=== PATIENT | female | born 1940 | race Caucasian/White ===

== ENCOUNTER → 2016-12-24 | Outpatient (CLI) | payer OTHER ==
[~2016-12-24] MED LIST: NS 100 ML IV 100 ML IV ONE
[2016-12-24 16:44] LABS: ALANINE AMINOTRANSFERASE 38 Units/L (12-78); ALBUMIN 3.9 g/dL (3.4-5.0); ALKALINE PHOSPHATASE 63 Units/L (46-116); AMYLASE 42 Units/L (25-115); ASPARTATE AMINO TRANSFERASE 32 Units/L (15-37); BLOOD UREA NITROGEN 16 mg/dL (7-18); CALCIUM 8.5 mg/dL (8.5-10.1); CARBON DIOXIDE 29.2 mmol/L (21-32); CHLORIDE 109 mmol/L (98-107); CREATININE 1.04 mg/dL (0.55-1.02); GLUCOSE 89 mg/dL (65-99); LIPASE 297 Units/L (73-393); SODIUM 146 mmol/L (136-145); TOTAL PROTEIN 6.6 g/dL (6.4-8.2); eGFR BLACK RACES > 60 (>60); eGFR NON BLACK RACES 55 (>60)
[2016-12-24 16:45] LABS: SERUM ACETONE NEGATIVE (NEGATIVE)
[2016-12-24 16:54] LABS: BASOPHILS # (AUTO) 0.1 X10^3/uL (0.0-0.1); BASOPHILS % (AUTO) 0.8 % (0.2-1.0); EOSINOPHILS # (AUTO) 0.2 x10^3/uL (0.0-0.2); EOSINOPHILS % (AUTO) 2.5 % (0.9-2.9); HEMATOCRIT 31.2 % (36.0-47.0); HEMOGLOBIN 9.8 g/dL (12.0-16.0); LYMPHOCYTES # (AUTO) 1.8 X10^3/uL (1.3-2.9); LYMPHOCYTES % (AUTO) 25.6 % (21.0-51.0); MEAN CORPUSCULAR HEMOGLOBIN 20.1 pg (27.0-34.0); MEAN CORPUSCULAR HGB CONC 31.6 g/dL (33.0-35.0); MEAN CORPUSCULAR VOLUME 63.5 fL (80.0-100.0); MEAN PLATELET VOLUME 9.8 fL (7.4-11.0); MONOCYTES # (AUTO) 0.5 x10^3/uL (0.3-0.8); MONOCYTES % (AUTO) 6.5 % (0.0-13.0); NEUTROPHILS # (AUTO) 4.5 x10^3/uL (2.2-4.8); NEUTROPHILS % (AUTO) 64.6 % (42.0-75.0); PLATELET COUNT 171 X10^3/uL (150.0-450.0); RED BLOOD COUNT 4.91 X10^6/uL (3.5-5.4); RED CELL DISTRIBUTION WIDTH 15.2 % (11.6-16.5)
[2016-12-24 17:26] LABS: ANISOCYTOSIS 1+; BURR CELLS PRESENT; HYPOCHROMASIA 2+; MICROCYTOSIS 2+; OVALOCYTES PRESENT; PLATELET MORPHOLOGY COMMENT NORMAL (NORMAL); TARGET CELLS PRESENT
--- NOTE | 2016-12-25 08:05 | CT ---
HISTORY: Abdominal pain Study: CT abdomen pelvis with contrast Comparison: None Technique: axial post-contrast images with coronal and sagittal reformats. Dose reduction procedures were used with MA/kv adjusted for body size. Findings: The liver, spleen, adrenal glands, and pancreas are within normal limits. The patient is status post cholecystectomy. The kidneys are unobstructed and without stones or solid masses. Bilateral renal c ysts are present. No ureteral calculi are identified. Calcific atherosclerotic change is present in a nondilated abdominal aorta. No intraperitoneal or retroperitoneal lymphadenopathy of significance is identified. The appendix is normal. There are no findings suggestive of diverticulitis or colitis . Examination of the pelvis demonstrated no evidence for pelvic masses, pelvic fluid, or pelvic lymp hadenopathy. No bladder abnormality is identified. No lytic or blastic skeletal lesions are identifi ed. IMPRESSION: No significant abnormality identified Reported By:
== END ==
LOC: LAB 16:04
PROVIDERS: ATTEND Nurse Practitioner Family
DX: R10.31 Right lower quadrant pain (principal)
CPT/HCPCS: 36415; 74177; 80053; 82009; 82150; 83690; 85025; A4222

== ENCOUNTER → 2017-03-13 | Outpatient (CLI) | payer OTHER ==
--- NOTE | 2017-03-14 16:08 | MG ---
HISTORY: SCREENING Comparison: January 19, 2015 and February 01, 2016 FINDINGS: Bilateral CC and MLO projections of the right and left breast were obtained. Scattered fibroglandul ar tissue is seen to be present without significant interval change. No suspicious architectural di stortion, mass or clustered microcalcifications can be observed to suggest malignancy. No skin thic kening or nipple retraction is appreciated. No pathological lymphadenopathy can be identified. Garrett ign-appearing calcifications are noted within the right and left breast. IMPRESSION: NO RADIOGRAPHIC EVIDENCE OF MALIGNANCY. ACR CATEGORY 2 - benign findings. FOLLOW-UP EXAM 1 YEAR. Diagnostic CAD was utilized and reviewed. * 0 (ZERO) - ASSESSMENT INCOMPLETE; ADDITIONAL IMAGING IS NEEDED. * 1/1 (ONE) - NEGATIVE. * 2/II (TWO) - BENIGN FINDINGS. * 3/III (THREE) - PROBABLY BENIGN FINDING; SHORT INTERVAL FOLLOW-UP SUGGESTED. * 4/IV (FOUR) - SUSPICIOUS ABNORMALITY; BIOPSY SHOULD BE CONSIDERED. * 5/V (FIVE) - HIGHLY SUSPICIOUS OF MALIGNANCY; BIOPSY SHOULD BE PERFORMED. A NEGATIVE X-RAY REPORT SHOULD NOT DELAY BIOPSY IF A DOMINANT OR CLINICALLY SUSPICIOUS MASS IS PRESENT; 4 TO 8 PERCENT OF CANCERS ARE NOT IDENTIFIED BY X-RAY. A NEG ATIVE REPORT MAY REINFORCE THE CLINICAL IMPRESSION. ADENOSIS AND DENSE BREASTS MAY OBSCURE AN UNDER LYING NEOPLASM. Reported By:
== END ==
LOC: RAD 10:31
PROVIDERS: ATTEND Nurse Practitioner Family
DX: Z12.31 Encounter for screening mammogram for malignant neoplasm of breast (principal)
CPT/HCPCS: 77067

== ENCOUNTER → 2017-09-13 | Outpatient (CLI) | payer OTHER ==
[2017-09-13 18:30] LABS: BASOPHILS # (AUTO) 0.1 X10^3/uL (0.0-0.1); EOSINOPHILS # (AUTO) 0.1 x10^3/uL (0.0-0.2); EOSINOPHILS % (AUTO) 1.1 % (0.9-2.9); HEMATOCRIT 31.5 % (36.0-47.0); LYMPHOCYTES # (AUTO) 3.2 X10^3/uL (1.3-2.9); LYMPHOCYTES % (AUTO) 35.4 % (21.0-51.0); MEAN CORPUSCULAR HEMOGLOBIN 20.4 pg (27.0-34.0); MEAN CORPUSCULAR HGB CONC 31.9 g/dL (33.0-35.0); MEAN CORPUSCULAR VOLUME 63.9 fL (80.0-100.0); MEAN PLATELET VOLUME 9.2 fL (7.4-11.0); MONOCYTES # (AUTO) 0.6 x10^3/uL (0.3-0.8); MONOCYTES % (AUTO) 6.7 % (0.0-13.0); NEUTROPHILS # (AUTO) 5.1 x10^3/uL (2.2-4.8); NEUTROPHILS % (AUTO) 55.8 % (42.0-75.0); PLATELET COUNT 223 X10^3/uL (150.0-450.0); RED BLOOD COUNT 4.93 X10^6/uL (3.5-5.4); RED CELL DISTRIBUTION WIDTH 15.2 % (11.6-16.5); WHITE BLOOD COUNT 9.1 X10^3/uL (3.6-10.0)
[2017-09-13 18:43] LABS: HEMOGLOBIN A1C 5.4 % (4.5-6.2)
[2017-09-13 18:45] LABS: HYPOCHROMASIA 2+; PLATELET MORPHOLOGY COMMENT NORMAL (NORMAL)
[2017-09-13 18:46] LABS: MICROCYTOSIS 2+
[2017-09-13 19:01] LABS: ALANINE AMINOTRANSFERASE 29 Units/L (12-78); ALBUMIN 3.7 g/dL (3.4-5.0); ALKALINE PHOSPHATASE 58 Units/L (46-116); AMYLASE 44 Units/L (25-115); ASPARTATE AMINO TRANSFERASE 19 Units/L (15-37); BLOOD UREA NITROGEN 15 mg/dL (7-18); CALCIUM 8.5 mg/dL (8.5-10.1); CARBON DIOXIDE 29.6 mmol/L (21-32); CHLORIDE 107 mmol/L (98-107); CREATININE 0.92 mg/dL (0.55-1.02); FREE T4 (FREE THYROXINE) 1.02 ng/dL (0.76-1.46); LIPASE 309 Units/L (73-393); SODIUM 143 mmol/L (136-145); TOTAL PROTEIN 6.5 g/dL (6.4-8.2); TSH (3RD GENERATION) 4.214 uIU/mL (0.358-3.74); eGFR BLACK RACES > 60 (>60); eGFR NON BLACK RACES > 60 (>60)
[2017-09-13 21:10] LABS: SERUM ACETONE NEGATIVE (NEGATIVE)
== END ==
LOC: LAB 18:03
PROVIDERS: ATTEND Nurse Practitioner Family
DX: R53.83 Other fatigue (principal); R19.7 Diarrhea, unspecified; E86.0 Dehydration; R50.9 Fever, unspecified; I10 Essential (primary) hypertension; R52 Pain, unspecified; R79.89 Other specified abnormal findings of blood chemistry
CPT/HCPCS: 36415; 80053; 82009; 82150; 83036; 83690; 84439; 84443; 84481; 85025

== ENCOUNTER 2017-09-25 22:23 | Emergency (ER) | payer OTHER ==
[2017-09-25 22:50] VITALS: BMI 24.0
--- NOTE | 2017-09-25 23:37 | DR.GENAD ---
HPI - PCP Primary Care Physician: JACQUES QUIJANO - Complaint/Symptoms Chief Complaint Doctors Comments: Patient has been followed ant treated by relative and a battery of tests have been run w/o definitive diagnosis of patients symptoms. She is followed by a electroencephalograph technologist for yearly visits due family history of heart disease. She admits to intermittent episodes of diarrhea , stool sample submitted but unable to use due collection technique, EKG done Sinus Rhythmn (today) Chemistries wnl,wbc essentially normal. Patient states that she has been taking an antibiotic for her tooth infection but has been taking a reduced dose. Patient denies fever, had nausea last week and intermittent diarrhea. Patient states that she had a syncopal episode two weeks ago. Chief Complaint:: "I'M JUST SICK. I HAVE BEEN DEALING WITH THIS INFECTED TOOTH FOR APPROX. 1 MONTH, AND HAVE BEEN TAKING ANTIBIOTICS FOR THE TOOTH. I AM SUPPOSE TO BE HAVING SOME KIND OF PROCEDURE IN [place] BY DR.MILES LUNDY. FOR ABOUT THE LAST 2 WEEKS, I HAVE BEEN HAVING SOME DIARRHEA OFF AND ON. I JUST GET SO WEAK WHEN I STAND , LIKE I HAVE NO STRENGTH. I ALSO FEEL DIZZY SOMETIMES." PATIENT SON STATES, "SHE PASSED OUT ABOUT 2 WEEKS AGO AND SHE FELL TODAY. MY IS JACQUES QUIJANO AND SHE ORDERED SOME TEST ON HER TODAY. GERMÁN CAME HERE AND HAD THEM DONE. JACQUES SAID SHE MAY JUST BE DEHYDRATED." Self Treatment fo Chief Complaint: ANTIBIOTICS - Source History Provided: Patient, Family Member - Mode of Arrival Mode of Arrival: Ambulatory - Timing Onset of Chief Complaint: 09/11/17 PMH - PMH Past Medical History: Yes Past Medical History: Hypertension Past Surgical History: Yes Surgical History: Cholecystectomy, Hysterectomy, Ortho Surgery Past Surgical History Comment: LEFT ANKLE SURGERY - Family History History of Family Medical Conditions: No - Social History Does patient currently use any type of tobacco product: No Have you used tobacco products in the last 12 months: No Type of Tobacco Use: None Does any household member use tobacco: No Alcohol Use: None Do you use any recreational Drugs:: No Lives With: Alone Lives Where: Home - infectious screening Have you traveled outside the country in the last 6 months?: No Isolation: Standard ROS - Review of Systems Eyes: No Symptoms Reported ENTM: No Symptoms Reported Respiratoy: No Symptoms Reported Cardiovascular: No Symptoms Reported Gastrointestinal/Abdominal: No Symptoms Reported Genitourinary: No Symptoms Reported Neurological: No Symptoms Reported Musculoskeletal: No Symptoms Reported Integumentary: No Symptoms Reported Hematologic/Lymphatic: No Symptoms Reported Endocrine: No Symptoms Reported Psychiatric: No Symptoms Reported All Other Systems: Reviewed and Negative PE - Vital Signs Vitals: Temperature 97.5 F Pulse Rate 87 Respiratory Rate 18 Blood Pressure 141/64 O2 Sat by Pulse Oximetry 98 - General Limitations: No Limitations General Appearance: Alert, In No Apparent Distress - Head Head Exam: Normal Inspection, Atraumatic - Eyes Eye exam: Normal Appearance, PERRL, EOMI - ENT ENT Exam: Normal Exam External Ear Exam: Normal External Inspection TM/Canal Exam: Bilateral Normal Nose Exam: Normal Nose Exam Mouth Exam: Normal Inspection Throat Exam: Normal Inspection - Neck Neck Exam: Normal Inspection, Full ROM - Chest Chest Inspection: Normal Inspection - Respiratory Respiratory Exam: Normal Lung Sounds Bilat Respiratory Exam: Bilateral Clear to Auscultation - Cardiovascular Cardiovascular Exam: Regular Rate, Normal Rhythm - Abdominal Exam Abdominal Exam: Normal Inspection, Normal Bowel Sounds Abdominal Tenderness: negative: RUQ, RLQ, LUQ, LLQ, Epigastrium, Suprapubic, Diffuse, Mild, Moderate, Severe, Other - Extremities Extremities Exam: Normal Inspection, Full ROM - Back Back Exam: Normal Inspection, Full ROM - Neurologic Neurological Exam: Alert, Oriented X3, CN II-XII Intact - Psychiatric Psychiatric Exam: Normal Affect, Normal Mood, Depressed - Skin Skin Exam: Warm, Dry, Intact Course - Reevaluation 1st: Unchanged ROR - XRAY XRAY Interpreted by: Radiologist (Ct sinuses w/o contrast: There is developmental underpneumatization of the frontal sinuses. There is suggestion of previous bilateral ethmoidectomy. Mild diffuse mucosal thickening of the bilateral maxillary sinuses is noted, without osseous change. No fluid level identified. Minimal frothy fluid is also noted within the nondependent portions of the sphenoid sinuses. The ostiomeatal complexes are growssly patent bilaterally; Impression: Mild bilateral maxillary and sphenoid sinusitis. CT Brain: There is generalized mild age appropriate brain atrophy with concomitant ventricular and sulcal enlargement. Periventricular white matter hypoattenuation is most suggestive for chronic microagniopathy. No acute bleed, mass effect or abnormal extra axial collection identified. No acute skeletal abnormality identified. The mastoid aire cells and middle ears are grossly clear , Sinus findings reported separeted. No acute intracranial abnormality. Age related changes.) - Diagnosis Discharge Problem: Maxillary sinusitis Qualifiers: Chronicity: acute Recurrence: not specified as recurrent Qualified Code(s): J01.00 - Acute maxillary sinusitis, unspecified Sphenoid sinusitis Qualifiers: Chronicity: unspecified Qualified Code(s): J32.3 - Chronic sphenoidal sinusitis - Discharge Plan Condition: Stable - Follow ups/Referrals Follow ups/Referrals: NFD,None [Primary Care Provider] - 3 days - Instructions
--- NOTE | 2017-09-26 00:21 | CT ---
CT head without contrast Indication: Weakness, syncope, sinus infection Comparison: None Technique: CT images of the head were obtained without contrast. Automatic exposure control was utili zed. There is generalized mild age-appropriate brain atrophy with concomitant ventricular and sulcal enlar gement. Periventricular white matter hypoattenuation is most suggestive for chronic microangiopathy. No acute bleed, mass effect, or abnormal extra-axial collection identified. No acute skeletal abnorma lity identified. The mastoid air cells and middle ears are grossly clear. Sinus findings reported sep arately. Impression: No acute intracranial abnormality. Age related changes as above. Reported By:
--- NOTE | 2017-09-26 00:24 | CT ---
CT sinuses without contrast Indication: Weakness, sinus infections Comparison: None Technique: CT images of the sinuses were obtained without contrast. Automatic exposure control was ut ilized. Findings: There is developmental underpneumatization of the frontal sinuses. There is suggestion of p revious bilateral ethmoidectomy. Mild diffuse mucosal thickening of the bilateral maxillary sinuses i s noted, without osseous change. No fluid level identified. Minimal frothy fluid is also noted within the nondependent portions of the sphenoid sinuses. The ostiomeatal complexes are grossly patent bila terally. Impression: Mild bilateral maxillary and sphenoid sinusitis. Reported By:
[2017-09-26 01:08] VITALS: BP 132/57
== END 2017-09-26 01:21 | disposition home or self-care (01) ==
LOC: ER 22:23
DX: J01.80 Other acute sinusitis (principal); J32.3 Chronic sphenoidal sinusitis; W19.XXXA Unspecified fall, initial encounter; Y92.9 Unspecified place or not applicable; R19.7 Diarrhea, unspecified; R53.83 Other fatigue; R05 Cough; R06.02 Shortness of breath; I10 Essential (primary) hypertension
CPT/HCPCS: 36415; 70450; 70486; 71046; 80053; 82270; 83630; 85025; 87045; 87328; 87329; 87336; 87427; 87493; 87899; 93005; 99282; 99283

== ENCOUNTER → 2017-09-25 | Outpatient (CLI) | payer OTHER ==
[2017-09-25 15:44] LABS: BASOPHILS % (AUTO) 0.5 % (0.2-1.0); EOSINOPHILS % (AUTO) 0.3 % (0.9-2.9); HEMATOCRIT 34.5 % (36.0-47.0); LYMPHOCYTES # (AUTO) 0.9 X10^3/uL (1.3-2.9); LYMPHOCYTES % (AUTO) 16.6 % (21.0-51.0); MEAN CORPUSCULAR HEMOGLOBIN 20.4 pg (27.0-34.0); MEAN CORPUSCULAR HGB CONC 31.9 g/dL (33.0-35.0); MEAN PLATELET VOLUME 9.6 fL (7.4-11.0); MONOCYTES # (AUTO) 0.3 x10^3/uL (0.3-0.8); NEUTROPHILS # (AUTO) 4.1 x10^3/uL (2.2-4.8); NEUTROPHILS % (AUTO) 76.6 % (42.0-75.0); PLATELET COUNT 154 X10^3/uL (150.0-450.0); RED CELL DISTRIBUTION WIDTH 15.7 % (11.6-16.5); WHITE BLOOD COUNT 5.4 X10^3/uL (3.6-10.0)
[2017-09-25 16:00] LABS: ALANINE AMINOTRANSFERASE 33 Units/L (12-78); ALBUMIN 3.9 g/dL (3.4-5.0); ALKALINE PHOSPHATASE 68 Units/L (46-116); ASPARTATE AMINO TRANSFERASE 24 Units/L (15-37); BLOOD UREA NITROGEN 16 mg/dL (7-18); CARBON DIOXIDE 25.6 mmol/L (21-32); CHLORIDE 104 mmol/L (98-107); CREATININE 1.06 mg/dL (0.55-1.02); SODIUM 139 mmol/L (136-145); TOTAL PROTEIN 7.1 g/dL (6.4-8.2); eGFR BLACK RACES > 60 (>60); eGFR NON BLACK RACES 53 (>60)
--- NOTE | 2017-09-25 16:22 | RAD ---
HISTORY: Shortness of breath Study: PA and lateral views of the chest. Comparison: None. Findings: The cardiomediastinal silhouette is normal. No focal consolidations, pleural effusions or pneumothora x. Bilateral hyper expansion and coarsening of interstitial markings. IMPRESSION: 1. No acute cardiopulmonary process. 2. Findings consistent with COPD. Reported By:
[2017-09-25 16:29] LABS: HYPOCHROMASIA 2+; MICROCYTOSIS 2+; PLATELET MORPHOLOGY COMMENT NORMAL (NORMAL)
[2017-09-25 20:08] LABS: STOOL FOR WBC NEGATIVE (NEGATIVE)
[2017-09-25 20:09] LABS: GIARDIA LAMBLIA ANTIGEN NEGATIVE (NEGATIVE)
[2017-09-25 20:10] LABS: CRYPTOSPORIDIUM PARVUM ANTIGEN NEGATIVE (NEGATIVE)
== END ==
LOC: LAB 15:08
PROVIDERS: ATTEND Nurse Practitioner Family
DX: R19.7 Diarrhea, unspecified (principal); R53.83 Other fatigue; R05 Cough; R06.02 Shortness of breath; I10 Essential (primary) hypertension
CPT/HCPCS: 36415; 71046; 80053; 82270; 83630; 85025; 87045; 87328; 87329; 87336; 87427; 87493; 87899; 93005; 93010

== ENCOUNTER → 2017-11-03 | Outpatient (CLI) | payer OTHER ==
--- NOTE | 2017-11-03 16:40 | RAD ---
Examination: Chest, PA and lateral views History: Bronchitis Comparison 09/25/2017 Findings: Continued normal heart size with clear lungs and pleural spaces. Metallic clothing artifact s are projected over the lower heart/mediastinum. There is no change in appearance of a compression f racture in the lower thoracic spine compared to prior study. Impression: No change; no acute findings. Reported By:
== END ==
LOC: RAD 16:00
DX: J20.9 Acute bronchitis, unspecified (principal); R06.2 Wheezing
CPT/HCPCS: 71046; 87070; 87205

== ENCOUNTER 2022-05-30 09:02 | Inpatient (IN) ==
[2022-05-30] MEDS ORDERED: ROCEPHIN 1 GRAM IV PREMIX 1 G/50 ML IV.SOLN. IV SCH (13:54)
[2022-05-30 14:14] LABS: ALANINE AMINOTRANSFERASE 20 Units/L (12-78); ALBUMIN 3.8 g/dL (3.4-5.0); ALKALINE PHOSPHATASE 56 Units/L (46-116); ASPARTATE AMINO TRANSFERASE 25 Units/L (15-37); BLOOD UREA NITROGEN 12 mg/dL (7-18); CALCIUM 8.2 mg/dL (8.5-10.1); CARBON DIOXIDE 30.7 mmol/L (21-32); CHLORIDE 106 mmol/L (98-107); CREATININE 0.71 mg/dL (0.55-1.02); SODIUM 142 mmol/L (136-145); TOTAL PROTEIN 6.2 g/dL (6.4-8.2); eGFR NON BLACK RACES > 60 (>60)
[2022-05-30 14:16] LABS: BASOPHILS # (AUTO) 0.1 X10^3/uL (0.0-0.1); EOSINOPHILS # (AUTO) 0.1 x10^3/uL (0.0-0.2); HEMATOCRIT 28.6 % (36.0-47.0); HEMOGLOBIN 9.1 g/dL (12.0-16.0); LYMPHOCYTES # (AUTO) 1.6 X10^3/uL (1.3-2.9); LYMPHOCYTES % (AUTO) 27.8 % (21.0-51.0); MEAN CORPUSCULAR HEMOGLOBIN 20.9 pg (27.0-34.0); MEAN CORPUSCULAR HGB CONC 31.9 g/dL (33.0-35.0); MEAN CORPUSCULAR VOLUME 65.5 fL (80.0-100.0); MEAN PLATELET VOLUME 9.3 fL (7.4-11.0); MONOCYTES # (AUTO) 0.5 x10^3/uL (0.3-0.8); MONOCYTES % (AUTO) 8.1 % (0.0-13.0); NEUTROPHILS # (AUTO) 3.7 x10^3/uL (2.2-4.8); NEUTROPHILS % (AUTO) 62.1 % (42.0-75.0); RED BLOOD COUNT 4.37 X10^6/uL (3.5-5.4); RED CELL DISTRIBUTION WIDTH 15.2 % (11.6-16.5); WHITE BLOOD COUNT 5.9 X10^3/uL (3.6-10.0)
[2022-05-30 14:16] LABS: BILIRUBIN,URINE NEGATIVE (NEGATIVE); BLOOD/HEMOGLOBIN,URINE NEGATIVE (NEGATIVE); GLUCOSE, URINE NEGATIVE (NEGATIVE); KETONES,URINE 2+ (NEGATIVE); LEUKOCYTE ESTERASE ,URINE NEGATIVE (NEGATIVE); NITRITES,URINE NEGATIVE (NEGATIVE); PROTEIN,URINE NEGATIVE (NEGATIVE); UROBILINOGEN,URINE NORMAL (NORMAL)
[2022-05-30 14:17] LABS: MICROCYTOSIS 1+; PLATELET MORPHOLOGY COMMENT NORMAL (NORMAL)
[2022-05-30 14:18] LABS: OVALOCYTES 1+; TARGET CELLS SLIGHT; TEAR DROP CELLS 1+
[2022-05-30 14:25] LABS: AMMONIA < 10 umol/L (11-32)
[2022-05-30 14:25] LABS: APPEARANCE,URINE CLEAR (CLEAR); COLOR,URINE YELLOW (YELLOW)
[2022-05-30 14:28] LABS: CREATINE KINASE 99 Units/L (26-192)
--- NOTE | 2022-05-30 14:39 | DR.PEXTPAI ---
HPI Time seen Time Seen by Provider: 05/30/22 14:39 COVID-19 Coronavirus risk:travel/contact w/high risk person: No Has patient experienced Coronavirus symptoms: No PMH Past Surgical History Past Surgical History: Yes Vaccines Pneumococcal Vaccine Every 5 Yrs: Yes PE Vital Signs Vitals: Blood Pressure [Left Arm] 152/62 Blood Pressure 151/69 ROR Labs Reviewed Result Diagrams: 05/30/22 09:50 05/30/22 09:50 Laboratory: WBC 5.9 X10^3/uL (3.6-10.0) 05/30/22 09:50 RBC 4.37 X10^6/uL (3.5-5.4) 05/30/22 09:50 Hgb 9.1 g/dL (12.0-16.0) L 05/30/22 09:50 Hct 28.6 % (36.0-47.0) L 05/30/22 09:50 MCV 65.5 fL (80.0-100.0) L 05/30/22 09:50 MCH 20.9 pg (27.0-34.0) L 05/30/22 09:50 MCHC 31.9 g/dL (33.0-35.0) L 05/30/22 09:50 RDW 15.2 % (11.6-16.5) 05/30/22 09:50 Plt Count 173 X10^3/uL (150.0-450.0) 05/30/22 09:50 Plt Count Comment Adequate (ADEQUATE) 05/30/22 09:50 MPV 9.3 fL (7.4-11.0) 05/30/22 09:50 Neut % (Auto) 62.1 % (42.0-75.0) 05/30/22 09:50 Lymph % (Auto) 27.8 % (21.0-51.0) 05/30/22 09:50 Mcmullen % (Auto) 8.1 % (0.0-13.0) 05/30/22 09:50 Eos % (Auto) 1.0 % (0.9-2.9) 05/30/22 09:50 Baso % (Auto) 1.0 % (0.2-1.0) 05/30/22 09:50 Neut # (Auto) 3.7 x10^3/uL (2.2-4.8) 05/30/22 09:50 Lymph # (Auto) 1.6 X10^3/uL (1.3-2.9) 05/30/22 09:50 Mcmullen # (Auto) 0.5 x10^3/uL (0.3-0.8) 05/30/22 09:50 Eos # (Auto) 0.1 x10^3/uL (0.0-0.2) 05/30/22 09:50 Baso # (Auto) 0.1 X10^3/uL (0.0-0.1) 05/30/22 09:50 Absolute Nucleated RBC 0.1 /100WBC 05/30/22 09:50 Plt Morphology Comment Normal (NORMAL) 05/30/22 09:50 RBC Morphology Abnormal (NORMAL) A 05/30/22 09:50 Microcytosis 1+ A 05/30/22 09:50 Target Cells Slight A 05/30/22 09:50 Tear Drop Cells 1+ A 05/30/22 09:50 Ovalocytes 1+ A 05/30/22 09:50 Acanthocytes (Spur) Slight 05/30/22 09:50 D-Dimer 1.74 ug/ml (0.0-0.57) H 05/30/22 09:50 Sodium 142 mmol/L (136-145) 05/30/22 09:50 Corrected Sodium TNP 05/30/22 09:50 Potassium 3.3 mmol/L (3.5-5.1) L 05/30/22 09:50 Chloride 106 mmol/L (98-107) 05/30/22 09:50 Carbon Dioxide 30.7 mmol/L (21-32) 05/30/22 09:50 BUN 12 mg/dL (7-18) 05/30/22 09:50 Creatinine 0.71 mg/dL (0.55-1.02) 05/30/22 09:50 Est GFR (MDRD) Af Amer > 60 (>60) 05/30/22 09:50 Est GFR (MDRD) Non-Af > 60 (>60) 05/30/22 09:50 Glucose 89 mg/dL (65-99) 05/30/22 09:50 Calcium 8.2 mg/dL (8.5-10.1) L 05/30/22 09:50 Corrected Calcium TNP 05/30/22 09:50 Magnesium 2.0 mg/dL (1.7-2.9) 05/30/22 09:50 Total Bilirubin 0.90 mg/dL (0.2-1.0) 05/30/22 09:50 AST 25 Units/L (15-37) 05/30/22 09:50 ALT 20 Units/L (12-78) 05/30/22 09:50 Alkaline Phosphatase 56 Units/L (46-116) 05/30/22 09:50 Ammonia < 10 umol/L (11-32) L 05/30/22 09:50 Creatine Kinase 99 Units/L (26-192) 05/30/22 09:50 Troponin I High Sens 9.0 ng/L (4.0-60.0) 05/30/22 09:50 B-Natriuretic Peptide 25.6 pg/mL (0-79) 05/30/22 09:50 Total Protein 6.2 g/dL (6.4-8.2) L 05/30/22 09:50 Albumin 3.8 g/dL (3.4-5.0) 05/30/22 09:50 Globulin 2.4 g/dL (2.5-4.5) L 05/30/22 09:50 Albumin/Globulin Ratio 1.6 Ratio (1.1-2.1) 05/30/22 09:50 Specimen Type Clean catch urine 05/30/22 12:24 Urine Color Yellow (YELLOW) 05/30/22 12:24 Urine Appearance Clear (CLEAR) 05/30/22 12:24 Urine pH 6.0 (5.0 - 8.0) 05/30/22 12:24 Ur Specific [place] 1.005 (1.000-1.030) 05/30/22 12:24 Urine Protein Negative (NEGATIVE) 05/30/22 12:24 Urine Glucose (UA) Negative (NEGATIVE) 05/30/22 12:24 Urine Ketones 2+ (NEGATIVE) 05/30/22 12:24 Urine Blood Negative (NEGATIVE) 05/30/22 12:24 Urine Nitrite Negative (NEGATIVE) 05/30/22 12:24 Urine Bilirubin Negative (NEGATIVE) 05/30/22 12:24 Urine Urobilinogen Normal (NORMAL) 05/30/22 12:24 Ur Leukocyte Esterase Negative (NEGATIVE) 05/30/22 12:24 SARS-CoV-2 (PCR) Negative (NEGATIVE) 05/30/22 14:08 Opioid Opioid Risk Tool Age (Sarwat box if 16-45): No History of Preadolescent Sexual Abuse: No Total: 0 Total Score Risk Category: Low Risk Copyright: Александр GOODRICH predicting aberrant behaviors Discharge Plan Diagnosis Discharge Problem: CVA (cerebral vascular accident), Altered mental state Discharge Plan Patient Disposition: ADMITTED INPATIENT Condition: Stable Orders to Discharge Patient Discharge Orders: Transfer (Routine); Ordered 05/30/22 Ordered By: VALERIA ESQUIVEL
[2022-05-30] MEDS ORDERED: ZOFRAN INJ 4 MG VIAL IVP ONE ×2 (15:55→15:59)
[2022-05-30] MEDS: ROCEPHIN VIAL 1 GRAM 1 G in NS 100 ML IV 100 ML IV SCH (15:59)
[2022-05-30] MEDS ORDERED: ZOFRAN INJ 4 MG VIAL ONE (15:59)
[2022-05-30 16:51] VITALS: BMI 24.0
[2022-05-30] MEDS ORDERED: POTASSIUM CHL 40 MEQ/NS 0.45% 500 ML IV PRN (17:03)
[2022-05-30] MEDS ORDERED: POTASSIUM CHLORIDE LIQ 20 MEQ UDC PO PRN (17:03)
[2022-05-30] MEDS ORDERED: MICRO K EXTEN CAP 10 MEQ PO PRN (17:03)
[2022-05-30] MEDS ORDERED: K-RIDER 10 MEQ/NS 100 ML 10 MEQ/100 ML BAG IV PRN (17:03)
[2022-05-30] MEDS ORDERED: POTASSIUM CHL 60 MEQ/NS 0.45% 500 ML IV PRN (17:03)
[2022-05-30] MEDS ORDERED: KLOR-CON PO PRN (17:03)
[2022-05-30] MEDS: K-DUR TAB 20 MEQ PO PRN (17:34)
--- NOTE | 2022-05-30 17:59 | RAD ---
HISTORYAMS HTN, GB, HYSTERECTOMY, ORTHOSTUDYCHEST, 1 [id number] diastinal silhouette within normal limits. No focal consolidation, pulmonary edema, sizeable pleural effusion, or visible pneumothorax. No acute osseous finding.IMPRESSIONNo acute appearing finding.Electronically signed by: Partha Keene (May 30, 2022 17:57:45)
[2022-05-30 19:18] LABS: INR 1.12 (0.8-1.3)
[2022-05-30] MEDS: COREG TAB 6.25 MG PO SCH (20:45)
[2022-05-30] MEDS: LIPITOR TAB 10 MG PO SCH (20:45)
[2022-05-30] MEDS: NORVASC TAB 5 MG PO SCH (20:45)
[2022-05-31 06:21] LABS: BASOPHILS % (AUTO) 0.7 % (0.2-1.0); EOSINOPHILS # (AUTO) 0.1 x10^3/uL (0.0-0.2); EOSINOPHILS % (AUTO) 1.2 % (0.9-2.9); HEMOGLOBIN 9.6 g/dL (12.0-16.0); LYMPHOCYTES # (AUTO) 1.4 X10^3/uL (1.3-2.9); LYMPHOCYTES % (AUTO) 23.6 % (21.0-51.0); MEAN CORPUSCULAR HEMOGLOBIN 20.8 pg (27.0-34.0); MEAN CORPUSCULAR HGB CONC 32.2 g/dL (33.0-35.0); MEAN CORPUSCULAR VOLUME 64.7 fL (80.0-100.0); MEAN PLATELET VOLUME 9.7 fL (7.4-11.0); MONOCYTES # (AUTO) 0.4 x10^3/uL (0.3-0.8); MONOCYTES % (AUTO) 7.5 % (0.0-13.0); NEUTROPHILS # (AUTO) 3.9 x10^3/uL (2.2-4.8); RED BLOOD COUNT 4.63 X10^6/uL (3.5-5.4); RED CELL DISTRIBUTION WIDTH 15.3 % (11.6-16.5); WHITE BLOOD COUNT 5.9 X10^3/uL (3.6-10.0)
[2022-05-31 06:43] LABS: ALANINE AMINOTRANSFERASE 22 Units/L (12-78); ALBUMIN 3.5 g/dL (3.4-5.0); ALKALINE PHOSPHATASE 55 Units/L (46-116); ASPARTATE AMINO TRANSFERASE 28 Units/L (15-37); BLOOD UREA NITROGEN 16 mg/dL (7-18); CALCIUM 8.3 mg/dL (8.5-10.1); CARBON DIOXIDE 27.4 mmol/L (21-32); CHLORIDE 108 mmol/L (98-107); CHOL/HDL RATIO 2.3 (0.0-5.0); CHOLESTEROL 112 mg/dL (0-200); HDL CHOLESTEROL 48 mg/dL (40-60); SODIUM 143 mmol/L (136-145); TOTAL PROTEIN 6.2 g/dL (6.4-8.2); TRIGLYCERIDES 67 mg/dL (0-150); eGFR NON BLACK RACES > 60 (>60)
[2022-05-31 07:07] LABS: MICROCYTOSIS 2+; OVALOCYTES PRESENT; PLATELET MORPHOLOGY COMMENT NORMAL (NORMAL); STOMATOCYTES PRESENT; TARGET CELLS PRESENT; TEAR DROP CELLS PRESENT
[2022-05-31] MEDS ORDERED: ROCEPHIN 1 GRAM IV PREMIX 1 G/50 ML IV.SOLN. IV SCH (09:00)
[2022-05-31] MEDS: NORVASC TAB 5 MG PO SCH ×2 (09:02→20:12)
[2022-05-31] MEDS: ROCEPHIN VIAL 1 GRAM 1 G in NS 100 ML IV 100 ML IV SCH (09:03)
[2022-05-31] MEDS: COREG TAB 6.25 MG PO SCH ×2 (09:03→20:12)
--- NOTE | 2022-05-31 10:06 | VAS ---
HISTORYCVA. Evaluate carotid stenosis.STUDYCAROTID USCOMPARISONNoneTECHNIQUEForty images made by the fruit trimmer. Rogel scale and color flow Doppler images of the right carotid arterial system, left carotid arterial system, and vertebral arterial system were obtained.FINDINGSVelocities are measured in centimeters per second. Recommendations are based on peer reviewed published data from Society of Radiologists in Ultrasound Consensus Conference, 2003.Right side: Right common carotid and internal carotid arteries are widely patent. Hard plaque is present in the carotid bulb. Seen is focal wall thickening. There is echogenicity with shadowing consistent with calcification.Peak systolic velocity in the right common carotid artery measured A1. Peak systolic velocity in the right internal carotid artery measured 73. This yields a peak systolic velocity ratio of 0.9. The peak end diastolic velocity measured 20. This estimates a stenosis of less than 50 percent.Right external carotid artery was patent. Flow in the right vertebral artery was antegrade.Left side: Left common carotid and internal carotid arteries are widely patent. Focal hard plaque is noted along the distal wall of the bulb. There is shadowing consistent with calcification.Peak systolic velocity in the left common carotid artery measured [92]. Peak systolic velocity in the left internal carotid artery measured [102]. This yields a peak systolic velocity ratio of [1.1]. The peak end diastolic velocity measured [19]. [This estimates a stenosis of less than 50 percent]Left external carotid artery was patent. Flow in the left vertebral artery was antegrade.IMPRESSION1. Bilateral carotid bulb plaque disease2. Less than 50% right ICA and left ICA stenosisElectronically signed by: Mateusz Pham (May 31, 2022 10:05:21)
--- NOTE | 2022-05-31 11:00 | RAD ---
HISTORYELEVATED BNPSTUDYCHEST, 1 [id number]/08/2022FINDINGSThe lungs are clear. No pneumothorax or significant effusion. No pulmonary edema. Probable superimposed shadows lower right chest.Heart size is normal. Vascular calcifications are present compatible with atherosclerosis.Bones are unremarkable. []IMPRESSION1. No significant abnormalityElectronically signed by: Mateusz Pham (May 31, 2022 10:58:53)
--- NOTE | 2022-05-31 13:03 | DR.H&P ---
H&P - History & Physical for Day of: H&P Date: 05/30/22 - Chief Complaint Chief Complaint: FALL, UTI - History of Present Illness History of Present Illness: PT IS 81 WF, RECENTLY DX WITH UTI AND POSSIBLE SUBACUTE CVA. PT WAS SEEN EARLIER IN THE WEEK AND TREATED FOR UTI. PTS CT RECOMMENDED FU MRI. PT WAS FOUND BY CHEMISTRY RESEARCH ASSISTANT ON FRIDAY MORNING AROUND 3 AM, LAYING IN CLOSET FLOOR. CHEMISTRY RESEARCH ASSISTANT REPORTS PT WAS UNSURE HOW SHE "GOT THERE" BUT WAS ALERT AND WITHOUT SPEECH IMPAIRMENT OR UNILATERAL WEAKNESS. PT ADMITTED FOR TREATMENT AND EVALUATION OF ACUTE ILLNESS. - Past Medical History Past Medical History: Hypertension, Dyslipidemia, Arthritis - Past Surgical History Surgical History: Cholecystectomy, Hysterectomy - Family History Family Medical History: [place] - Social History Does patient currently use any type of tobacco product: No Have you used tobacco products in the last 12 months: No Alcohol Use: None Drug Use: None - Medications Home Medications: No Known Drug Allergies Allergy (Verified 10/03/20 19:23) CONTINUE taking the following medications meclizine 25 mg tablet 25 mg PO TID PRN 05/30/22 [History] ondansetron HCl 4 mg tablet 4 mg PO Q8H PRN 05/30/22 [History] - Review of Systems Constitutional: Weakness Eyes: No Symptoms Reported ENT: No Symptoms Reported Respiratory: No Symptoms Reported Cardiovascular: No Symptoms Reported Gastrointestinal: No Symptoms Reported Genitourinary: No Symptoms Reported Musculoskeletal: No Symptoms Reported Skin: No Symptoms Reported Neurological: Weakness - Physical Exam Vital Signs: Temperature 98.6 F Pulse Rate [Left Radial] 74 Respiratory Rate 22 Blood Pressure [Left Arm] 141/64 Blood Pressure 151/69 O2 Sat by Pulse Oximetry 93 Oriented: Normal Eyes: Normal Ear: Normal Nose: Normal Throat: Normal Respiratory: RLL Diminished, LLL Diminished Cardiovascular: Normal : Normal Auscultation: Bowel Sounds: Normal Palpation: Normal Tenderness: Normal Skin: Decreased Turgur Musculoskeletal: Motor Deficit Psychiatric: Normal Mood Description: Calm Speech Pattern: Clear, Appropriate - Assessment/Plan (1) CVA (cerebral vascular accident) Status: Acute Plan: ADMIT, CARDIAC MONITORING, MRI BRAIN. BP CONTROL, I&OS, CXR ON ADMISSION. TELEMERY. PT/OT EVALUATION, FLP, OBTAIN RECENT URINE CULTURE REPORT. BC ON ADMISSION, IV ROCEPHIN (2) UTI (urinary tract infection) Status: Acute (3) Hypertension Status: Acute (4) Hyperlipidemia Status: Acute (5) Weakness Status: Acute - Allergies Allergies/Adverse Reactions: Allergies Allergy/AdvReac Type Severity Reaction Status Date / Time No Known Drug Allergies Allergy Verified 10/03/20 19:23
--- NOTE | 2022-05-31 13:26 | MRI ---
HISTORYCONFUSION. CVA.STUDYBRAIN W/O CONCOMPARISONNone.TECHNIQUEMultiplanar multi-sequence MRI of the brain was obtained utilizing standard departmental protocol. Sagittal and axial T1 weighted images were obtained. Axial T2 and flair weighted images were performed as well. Axial diffusion weighted and ADC trace mapping was performed.FINDINGSMild motion artifact on the sagittal T1 sequence. Diffusion imaging: [Normal, no acute infarct.]Susceptibility weighted imaging: [No abnormal susceptibility artifact.]Brain volume: [Appropriate for age.]Ventricles and basal cisterns: FLAIR bright signal in the basilar cisterns and 4th ventricle is nonspecific but often due to technical artifact. No abnormal signal in these locations on other pulse sequences. No hydrocephalus.Extra-axial spaces: [No extra-axial collection.]Cerebral parynchema: [No mass, hematoma, or mass effect.] Moderate amount of T2 and Flair hyperintensities in the supratentorial brain mainly in the deep white matter.Pituitary and other sagittal midline structures: [Normal.]Visualized orbits: [Bilateral lens surgery.]Paranasal sinuses and mastoid air cells: [Clear.]Bones: [Intact.]Other: [None.]IMPRESSION[No abnormal restricted diffusion to suggest acute infarct. Moderate chronic small vessel disease.]Electronically signed by: Rudy Gonzales (May 31, 2022 13:24:06)
[2022-05-31] MEDS: LIPITOR TAB 10 MG PO SCH (20:12)
[2022-06-01 06:58] LABS: BASOPHILS % (AUTO) 0.6 % (0.2-1.0); EOSINOPHILS # (AUTO) 0.1 x10^3/uL (0.0-0.2); EOSINOPHILS % (AUTO) 1.9 % (0.9-2.9); HEMATOCRIT 26.8 % (36.0-47.0); HEMOGLOBIN 8.7 g/dL (12.0-16.0); LYMPHOCYTES # (AUTO) 1.5 X10^3/uL (1.3-2.9); LYMPHOCYTES % (AUTO) 28.8 % (21.0-51.0); MEAN CORPUSCULAR HEMOGLOBIN 21.3 pg (27.0-34.0); MEAN CORPUSCULAR HGB CONC 32.6 g/dL (33.0-35.0); MEAN CORPUSCULAR VOLUME 65.2 fL (80.0-100.0); MEAN PLATELET VOLUME 9.9 fL (7.4-11.0); MONOCYTES # (AUTO) 0.5 x10^3/uL (0.3-0.8); MONOCYTES % (AUTO) 9.1 % (0.0-13.0); NEUTROPHILS # (AUTO) 3.2 x10^3/uL (2.2-4.8); NEUTROPHILS % (AUTO) 59.6 % (42.0-75.0); RED CELL DISTRIBUTION WIDTH 15.1 % (11.6-16.5); WHITE BLOOD COUNT 5.3 X10^3/uL (3.6-10.0)
[2022-06-01 07:18] LABS: ALANINE AMINOTRANSFERASE 21 Units/L (12-78); ALBUMIN 3.2 g/dL (3.4-5.0); ALKALINE PHOSPHATASE 47 Units/L (46-116); ASPARTATE AMINO TRANSFERASE 21 Units/L (15-37); BLOOD UREA NITROGEN 15 mg/dL (7-18); CARBON DIOXIDE 29.8 mmol/L (21-32); CHLORIDE 107 mmol/L (98-107); COR CA(FOR HYPOALB) 8.6 mg/dL (8.5-10.1); CREATININE 0.73 mg/dL (0.55-1.02); SODIUM 143 mmol/L (136-145); TOTAL PROTEIN 5.7 g/dL (6.4-8.2); eGFR NON BLACK RACES > 60 (>60)
[2022-06-01 07:46] LABS: MICROCYTOSIS 1+; PLATELET MORPHOLOGY COMMENT NORMAL (NORMAL)
[2022-06-01 07:48] LABS: OVALOCYTES PRESENT; STOMATOCYTES PRESENT
[2022-06-01 07:50] LABS: TEAR DROP CELLS PRESENT
[2022-06-01 08:00] LABS: TARGET CELLS PRESENT
[2022-06-01] MEDS: COREG TAB 6.25 MG PO SCH ×2 (08:54→21:59)
[2022-06-01] MEDS: NORVASC TAB 5 MG PO SCH ×2 (08:54→22:00)
[2022-06-01] MEDS: ROCEPHIN VIAL 1 GRAM 1 G in NS 100 ML IV 100 ML IV SCH (08:54)
--- NOTE | 2022-06-01 13:52 | CT ---
HISTORYWeakness and slurred speechSTUDYCT brain without contrastCOMPARISONJanuary 2020TECHNIQUEMultiple axial images of the brain were obtained from the skull base to the vertex [without] administration of IV contrast.Dose reduction techniques including Automated Exposure Control (AEC) and adjustment of mA and kV were utlized.FINDINGS[No acute intraparenchymal hemorrhage or mass can be identified.] [No extra-axial fluid collections are seen.] [No alteration in the attenuation of the brain parenchyma can be identified to suggest acute or subacute ischemic change.] Small vessel ischemic changes and chronic appearing lacunar infarct in the right basal ganglia. Age-appropriate atrophic changes are also seen. [The ventricular system is symmetric and nondilated.] [The extracranial structures are grossly unremarkable.]IMPRESSION[No acute intracranial process can be identified.]Electronically signed by: PANCHO TRUONG (Jun 01, 2022 13:50:03)
[2022-06-01] MEDS: ASPIRIN 81 MG CHEWTAB PO SCH (16:01)
[2022-06-01] MEDS: PLAVIX PO SCH (16:02)
[2022-06-01] MEDS: K-DUR TAB 20 MEQ PO PRN (16:20)
[2022-06-01] MEDS: LIPITOR TAB 10 MG PO SCH (21:59)
[2022-06-02 06:32] LABS: BASOPHILS # (AUTO) 0.1 X10^3/uL (0.0-0.1); BASOPHILS % (AUTO) 1.1 % (0.2-1.0); EOSINOPHILS # (AUTO) 0.1 x10^3/uL (0.0-0.2); EOSINOPHILS % (AUTO) 1.5 % (0.9-2.9); HEMATOCRIT 26.4 % (36.0-47.0); HEMOGLOBIN 8.6 g/dL (12.0-16.0); LYMPHOCYTES # (AUTO) 1.8 X10^3/uL (1.3-2.9); LYMPHOCYTES % (AUTO) 33.4 % (21.0-51.0); MEAN CORPUSCULAR HGB CONC 32.5 g/dL (33.0-35.0); MEAN CORPUSCULAR VOLUME 64.6 fL (80.0-100.0); MEAN PLATELET VOLUME 9.5 fL (7.4-11.0); MONOCYTES # (AUTO) 0.4 x10^3/uL (0.3-0.8); MONOCYTES % (AUTO) 7.8 % (0.0-13.0); NEUTROPHILS % (AUTO) 56.2 % (42.0-75.0); RED BLOOD COUNT 4.09 X10^6/uL (3.5-5.4); RED CELL DISTRIBUTION WIDTH 15.3 % (11.6-16.5); WHITE BLOOD COUNT 5.3 X10^3/uL (3.6-10.0)
[2022-06-02 06:58] LABS: ALANINE AMINOTRANSFERASE 20 Units/L (12-78); ALBUMIN 3.2 g/dL (3.4-5.0); ALKALINE PHOSPHATASE 48 Units/L (46-116); ASPARTATE AMINO TRANSFERASE 18 Units/L (15-37); BLOOD UREA NITROGEN 11 mg/dL (7-18); CALCIUM 8.2 mg/dL (8.5-10.1); CARBON DIOXIDE 27.4 mmol/L (21-32); CHLORIDE 106 mmol/L (98-107); COR CA(FOR HYPOALB) 8.8 mg/dL (8.5-10.1); CREATININE 0.65 mg/dL (0.55-1.02); SODIUM 142 mmol/L (136-145); TOTAL PROTEIN 5.6 g/dL (6.4-8.2); eGFR NON BLACK RACES > 60 (>60)
[2022-06-02 07:08] LABS: PLATELET MORPHOLOGY COMMENT NORMAL (NORMAL)
[2022-06-02 07:09] LABS: MICROCYTOSIS 2+
[2022-06-02 07:10] LABS: OVALOCYTES PRESENT; STOMATOCYTES PRESENT; TARGET CELLS PRESENT; TEAR DROP CELLS PRESENT
[2022-06-02] MEDS: PLAVIX PO SCH (08:29)
[2022-06-02] MEDS: ROCEPHIN VIAL 1 GRAM 1 G in NS 100 ML IV 100 ML IV SCH (08:29)
[2022-06-02] MEDS: COREG TAB 6.25 MG PO SCH ×2 (08:29→20:06)
[2022-06-02] MEDS: ASPIRIN 81 MG CHEWTAB PO SCH (08:29)
[2022-06-02] MEDS: NORVASC TAB 5 MG PO SCH ×2 (08:29→20:06)
--- NOTE | 2022-06-02 15:57 | VAS ---
HISTORYReason For StudySTUDYLOWER EXT VENOUS, BILATERALCOMPARISONNoneTECHNIQUEMultiple renee scale and color flow Doppler images of the deep venous system were obtained of the right and left lower extremity.FINDINGSThe deep venous system of the right and left lower extremities were evaluated from the level of the common femoral vein through the popliteal vein. Normal color flow and augmentation can be observed. In addition, normal compression is seen throughout the deep venous system.IMPRESSIONNegative for DVT.Electronically signed by: PANCHO TRUONG (Jun 02, 2022 15:56:12)
[2022-06-02] MEDS ORDERED: NS 100 ML IV 100 ML ONE (16:52)
--- NOTE | 2022-06-02 18:28 | CT ---
EXAM: CTA CHEST WITH INTRAVENOUS CONTRASTHISTORY: Elevated D-dimer (increases yesterday). PE suspected.TECHNIQUE: Spiral axial CT images are obtained through the chest with the administration of intravenous contrast. Coronal, sagittal and 3D MIP images are reformatted.DOSIMETRY: Total DLP 437.1 mGycm; CTDI 32.2 mGyCOMPARISON: None available.FINDINGS:CARDIOVASCULAR: There are intravascular filling defects/PEs seen within segmental/subsegmental pulmonary arteries of the right and left upper lobes, right middle lobe, and right and left lower lobes; overall small to low moderate clot burden; no evidence for gross central pulmonary embolic lesion or pulmonary embolism seen. That heart size and mediastinal vascular structures are within normal limits. There is evidence for coronary and aortic atherosclerosis. No aortic aneurysm or dissection is seen. The heart size is within normal limits. No pericardial effusion is seen.MEDIASTINUM AND VIVIEN: There is a small hiatal hernia. No mass lesion, lymphadenopathy, emphysema, or abnormal fluid collection is seen.LUNGS: There is no acute parenchymal infiltrate, lung nodule, or endobronchial obstructing lesion seen. No pleural effusion or pneumothorax is evident.CHEST WALL: There are no chest wall lesions seen. The visualized bony structures are within normal limits. No axillary lymphadenopathy is noted.UPPER ABDOMEN: Limited views through the upper abdomen demonstrate no gross acute abnormality. There is a partially imaged multilocular cystic lesion with peripheral calcifications or calcified septations projecting from the anterior aspect of the left kidney and measuring at least 5.4 cm x 4.9 cm (Bosniak 2F). Consider follow-up dedicated renal imaging for further assessment as clinically warranted.IMPRESSION:1. PEs seen within segmental/subsegmental pulmonary arteries of the right and left upper lobes, right middle lobe, and right and left lower lobes; overall small to low moderate clot burden; no evidence for gross central pulmonary embolic lesion or pulmonary embolism seen.2. Coronary and aortic atherosclerosis; no aortic aneurysm or dissection seen.3. No evidence for pulmonary infarction, acute parenchymal infiltrate, pleural effusion, or pneumothorax seen.Electronically signed by: Calvin Stockton (Jun 02, 2022 18:26:00)
[2022-06-02 18:47] LABS: ABG BASE EXCESS 6.2 mmol/L (-2.0-2.0); ABG HCO3 29.5 mmol/L (22-26)
[2022-06-02] MEDS: COLACE CAP 100 MG PO SCH (20:05)
[2022-06-02] MEDS: LIPITOR TAB 10 MG PO SCH (20:06)
[2022-06-02 20:11] LABS: INR 1.14 (0.8-1.3)
[2022-06-02] MEDS ORDERED: HEPARIN SODIUM INJ 5000 UNITS IVP ONE (21:28)
[2022-06-02] MEDS ORDERED: HEPARIN SODIUM INJ 5000 UNITS ONE (21:32)
[2022-06-02] MEDS: HEPARIN SODIUM IN D5W 25,000 UNITS/500 ML BAG IV PRN (22:05)
[2022-06-03 04:26] LABS: BASOPHILS % (AUTO) 0.8 % (0.2-1.0); EOSINOPHILS # (AUTO) 0.2 x10^3/uL (0.0-0.2); EOSINOPHILS % (AUTO) 2.5 % (0.9-2.9); HEMATOCRIT 26.9 % (36.0-47.0); HEMOGLOBIN 8.8 g/dL (12.0-16.0); LYMPHOCYTES % (AUTO) 31.9 % (21.0-51.0); MEAN CORPUSCULAR HEMOGLOBIN 21.1 pg (27.0-34.0); MEAN CORPUSCULAR HGB CONC 32.7 g/dL (33.0-35.0); MEAN CORPUSCULAR VOLUME 64.5 fL (80.0-100.0); MEAN PLATELET VOLUME 9.3 fL (7.4-11.0); MONOCYTES # (AUTO) 0.5 x10^3/uL (0.3-0.8); MONOCYTES % (AUTO) 7.5 % (0.0-13.0); NEUTROPHILS # (AUTO) 3.5 x10^3/uL (2.2-4.8); NEUTROPHILS % (AUTO) 57.3 % (42.0-75.0); RED BLOOD COUNT 4.17 X10^6/uL (3.5-5.4); WHITE BLOOD COUNT 6.1 X10^3/uL (3.6-10.0)
[2022-06-03 04:35] LABS: ALANINE AMINOTRANSFERASE 18 Units/L (12-78); ALBUMIN 3.4 g/dL (3.4-5.0); ALKALINE PHOSPHATASE 52 Units/L (46-116); ASPARTATE AMINO TRANSFERASE 16 Units/L (15-37); BLOOD UREA NITROGEN 11 mg/dL (7-18); CALCIUM 8.1 mg/dL (8.5-10.1); CARBON DIOXIDE 27.9 mmol/L (21-32); CHLORIDE 105 mmol/L (98-107); CREATININE 0.71 mg/dL (0.55-1.02); SODIUM 141 mmol/L (136-145); TOTAL PROTEIN 5.9 g/dL (6.4-8.2); eGFR NON BLACK RACES > 60 (>60)
[2022-06-03 04:41] LABS: PLATELET MORPHOLOGY COMMENT NORMAL (NORMAL)
[2022-06-03 04:44] LABS: HYPOCHROMASIA 1+; MICROCYTOSIS 2+; OVALOCYTES PRESENT; STOMATOCYTES PRESENT; TARGET CELLS PRESENT; TEAR DROP CELLS PRESENT
[2022-06-03] MEDS: ASPIRIN 81 MG CHEWTAB PO SCH (08:21)
[2022-06-03] MEDS: COREG TAB 6.25 MG PO SCH ×2 (08:22→21:52)
[2022-06-03] MEDS: NORVASC TAB 5 MG PO SCH ×2 (08:23→21:52)
[2022-06-03] MEDS ORDERED: NS 250 ML IV 250 ML IV ONE (08:36)
[2022-06-03] MEDS: ROCEPHIN VIAL 1 GRAM 1 G in NS 100 ML IV 100 ML IV SCH (09:30)
[2022-06-03] MEDS ORDERED: HEPARIN SODIUM INJ 5000 UNITS IVP STA (11:04)
[2022-06-03] MEDS: COLACE CAP 100 MG PO SCH (21:52)
[2022-06-03] MEDS: LIPITOR TAB 10 MG PO SCH (21:52)
[2022-06-04] MEDS: HEPARIN SODIUM IN D5W 25,000 UNITS/500 ML BAG IV PRN (03:53)
[2022-06-04] MEDS ORDERED: DULCOLAX SUPPOSITORY 10 MG RECTAL ONE (08:12)
[2022-06-04 08:20] LABS: ALANINE AMINOTRANSFERASE 20 Units/L (12-78); ALBUMIN 3.7 g/dL (3.4-5.0); ALKALINE PHOSPHATASE 54 Units/L (46-116); ASPARTATE AMINO TRANSFERASE 17 Units/L (15-37); BLOOD UREA NITROGEN 10 mg/dL (7-18); CALCIUM 8.7 mg/dL (8.5-10.1); CARBON DIOXIDE 28.9 mmol/L (21-32); CHLORIDE 103 mmol/L (98-107); CREATININE 0.76 mg/dL (0.55-1.02); SODIUM 139 mmol/L (136-145); TOTAL PROTEIN 6.5 g/dL (6.4-8.2); eGFR NON BLACK RACES > 60 (>60)
[2022-06-04 08:23] LABS: BASOPHILS % (AUTO) 0 % (0.2-1.0); EOSINOPHILS # (AUTO) 0.9 x10^3/uL (0.0-0.2); EOSINOPHILS % (AUTO) 12.4 % (0.9-2.9); HEMATOCRIT 30.5 % (36.0-47.0); HEMOGLOBIN 9.8 g/dL (12.0-16.0); LYMPHOCYTES # (AUTO) 0.3 X10^3/uL (1.3-2.9); LYMPHOCYTES % (AUTO) 4.3 % (21.0-51.0); MEAN CORPUSCULAR HEMOGLOBIN 20.9 pg (27.0-34.0); MEAN CORPUSCULAR HGB CONC 32.3 g/dL (33.0-35.0); MEAN CORPUSCULAR VOLUME 64.7 fL (80.0-100.0); MEAN PLATELET VOLUME 9.9 fL (7.4-11.0); MONOCYTES # (AUTO) 0.3 x10^3/uL (0.3-0.8); MONOCYTES % (AUTO) 4.1 % (0.0-13.0); NEUTROPHILS # (AUTO) 5.7 x10^3/uL (2.2-4.8); NEUTROPHILS % (AUTO) 79.2 % (42.0-75.0); RED BLOOD COUNT 4.71 X10^6/uL (3.5-5.4); RED CELL DISTRIBUTION WIDTH 15.1 % (11.6-16.5); WHITE BLOOD COUNT 7.2 X10^3/uL (3.6-10.0)
[2022-06-04 08:39] LABS: HYPOCHROMASIA 1+; MICROCYTOSIS 2+; OVALOCYTES PRESENT; PLATELET MORPHOLOGY COMMENT NORMAL (NORMAL); STOMATOCYTES PRESENT; TARGET CELLS PRESENT; TEAR DROP CELLS PRESENT
[2022-06-04 08:40] LABS: SCHISTOCYTES PRESENT
[2022-06-04] MEDS: ASPIRIN 81 MG CHEWTAB PO SCH (09:20)
[2022-06-04] MEDS: NORVASC TAB 5 MG PO SCH (09:21)
[2022-06-04] MEDS: COREG TAB 6.25 MG PO SCH (09:22)
--- NOTE | 2022-06-04 09:52 | RAD ---
HISTORYSOBSTUDYCHEST, 1 [id number]/2022.TECHNIQUEAP view of the chestFINDINGSThe cardiac and mediastinal contours are within normal limits. The lungs are clear without focal consolidation or segmental collapse. No pleural effusion or pneumothorax.IMPRESSIONNo acute pulmonary process.Electronically signed by: Rudy Gonzales (Jun 04, 2022 09:50:27)
[2022-06-04] MEDS: ROCEPHIN VIAL 1 GRAM 1 G in NS 100 ML IV 100 ML IV SCH (12:21)
[2022-06-04] MEDS ORDERED: ZOFRAN INJ 4 MG VIAL IVP STA (12:56)
[2022-06-04 13:20] VITALS: BP 142/76
== END 2022-06-04 13:12 | disposition short-term general hospital (02) | DRG 69 ==
LOC: ER 13:40 → MED/SURG 14:42 → ICU 06-02 20:52
PROVIDERS: ADMIT Internal Medicine; ATTEND Internal Medicine
DX: E78.2 Mixed hyperlipidemia; I26.99 Other pulmonary embolism without acute cor pulmonale; R55 Syncope and collapse; G45.8 Other transient cerebral ischemic attacks and related syndromes; R79.1 Abnormal coagulation profile; R53.1 Weakness; R42 Dizziness and giddiness; I10 Essential (primary) hypertension; R26.89 Other abnormalities of gait and mobility; Z20.822 Contact with and (suspected) exposure to COVID-19; R06.02 Shortness of breath; N39.0 Urinary tract infection, site not specified

== ENCOUNTER 2023-03-31 22:01 | Inpatient (IN) ==
--- NOTE | 2023-03-31 22:06 | DR.EXTPAIN ---
HPI Time seen Time Seen by Provider: 03/31/23 22:05 HPI Comment HPI Comment: PATIENT IS 82YR OLD FEMALE IN ER WITH AFTER FALLING AT HOME. HAVING LEFT HIP PAIN. LAY ON THE FLOOR FOR 2HRS TILL FALLING GOT TO HER. SHE HAS HAD COUGH AND CONGESTION SINCE FRIDAY. SHE IS ON ZITHROMAX AND PREDNESONE PO. S TILL COUGHING AND SOB. DENIES FEVER, DYSURIA, VOMITING OR DIARRHEA. Complaint/Symptoms Chief Complaint Doctor Comments: FELL AT HOME TONIGHT. LEFT HIP PAIN. COUGH, CONGESTION SINCE FRIDAY. COVID-19 Coronavirus risk:travel/contact w/high risk person: Yes Has patient experienced Coronavirus symptoms: Yes Coronavirus symptoms experienced: Coughing Nurses notes reviewed Nurses Notes Review: Yes PMH PMH Past Medical History: Arthritis, Dyslipidemia and Hypertension Past Surgical History: Yes Surgical History: Cholecystectomy, Hysterectomy and Ortho Surgery Family History Family Medical History: GA and Coronary Artery Disease Social History Do you use any recreational Drugs:: No ROS Review of Systems Constitutional: No Symptoms Reported, Weakness and Fatigue; negative Fever Eyes: No Symptoms Reported; negative Blurred Vision ENTM: Nose Discharge and Nose Congestion Respiratoy: Productive Cough and Short of Breath; negative Wheezing Cardiovascular: No Symptoms Reported; negative Chest Pain or Edema Gastrointestinal/Abdominal: negative Abdominal Pain, Diarrhea, Nausea or Vomiti ng Genitourinary: No Symptoms Reported; negative Dysuria Neurological: Weakness; negative Headache Musculoskeletal: Hip (LEFT HIP PAIN.) Integumentary: No Symptoms Reported; negative Rash or Juandice Hematologic/Lymphatic: No Symptoms Reported and Easy Bruising Endocrine: No Symptoms Reported; negative Increased Thirst or Increased Urine Psychiatric: No Symptoms Reported All Other Systems: Reviewed and Negative PE Vital Signs Vitals: Vital Signs Temperature 99.5 F Pulse Rate 86 Pulse Rate 78 Pulse Rate 85 Pulse Rate 80 Pulse Rate 81 Pulse Rate 79 Pulse Rate 82 Pulse Rate 86 Pulse Rate 82 Pulse Rate 83 Pulse Rate 81 Pulse Rate 82 Pulse Rate 85 Pulse Rate 86 Pulse Rate 81 Pulse Rate 81 Pulse Rate 81 Pulse Rate 85 Pulse Rate 92 Pulse Rate 89 Respiratory Rate 24 Blood Pressure 152/65 Blood Pressure 142/65 Blood Pressure 142/65 Blood Pressure 129/51 Blood Pressure 129/51 Blood Pressure 141/65 Blood Pressure 158/71 Blood Pressure 164/67 Blood Pressure 128/58 Blood Pressure 128/58 O2 Sat by Pulse Oximetry 95 O2 Sat by Pulse Oximetry 96 O2 Sat by Pulse Oximetry 95 O2 Sat by Pulse Oximetry 96 O2 Sat by Pulse Oximetry 95 O2 Sat by Pulse Oximetry 97 O2 Sat by Pulse Oximetry 97 O2 Sat by Pulse Oximetry 97 O2 Sat by Pulse Oximetry 97 O2 Sat by Pulse Oximetry 99 O2 Sat by Pulse Oximetry 98 O2 Sat by Pulse Oximetry 99 O2 Sat by Pulse Oximetry 98 O2 Sat by Pulse Oximetry 94 O2 Sat by Pulse Oximetry 99 O2 Sat by Pulse Oximetry 99 O2 Sat by Pulse Oximetry 99 O2 Sat by Pulse Oximetry 98 O2 Sat by Pulse Oximetry 96 O2 Sat by Pulse Oximetry 95 General Limitations: No Limitations General Appearance: Alert and In Distress Head Head Exam: Normal Inspection and Atraumatic Eyes Eye exam: Normal Appearance, PERRL and EOMI; negative Scleral Icterus or Conjunctival Injection ENT ENT Exam: Normal Exam, Normal Oropharynx, Normal External Ear Exam and TM's Normal Bilaterally Neck Neck Exam: Normal Inspection and Trachea Midline; negative Tenderness Chest Chest Inspection: Normal Inspection and Symmetric Chest Wall Rise; negative Tenderness Respiratory Respiratory Exam: Respiratory Distress; negative Accessory Muscle Use or Chest Wall Tenderness Respiratory Exam: Bilateral: Rhonchi Cardiovascular Cardiovascular Exam: Regular Rate, Normal Rhythm and Rubs; negative Systolic Murmur or Diastolic Murmur Abdominal Exam Abdominal Exam: Normal Inspection, Normal Bowel Sounds and Soft; negative Tenderness Extremities Extremities Exam: Tenderness (RIGHT HIP TENDER. ROM DEGREASE.) Back Back Exam: Normal Inspection; negative (R) CVA Tenderness or (L) CVA Tenderness Neurological Neurological Exam: Alert and Oriented X3; negative Motor Sensory Deficit Psychiatric Psychiatric Exam: Normal Affect and Normal Mood Skin Skin Exam: Intact MDM Differential Diagnosis Differential Diagnosis: Contusion, Fracture, Sprain and Other (PNEUMONIA, UTI, BRONCHITIS, GA.) COURSE Treatment Treatment: SEE ORDERS DONE WHILE PATIENT WAS IN ER. GIVE TESSALON PEELES 100MG PO WHILE IN ER. PLACED ON CEFTAZIDIM IV. PABS, EKG AND XRAY DISCUSSED WITH PATIENT. ADMITTED TO HOSPITAL FOR FURTHER MANAGEMENT. Consultation Consultation Comments: DISCUSSED PATIENT WITH DR. LAWRENCE. HE WILL ADMIT PATIENT. [facility] Labs Reviewed Laboratory Results Reviewed?: Yes Result Diagrams: 04/02/23 04:41 04/02/23 04:41 Laboratory: WBC 14.3 X10^3/uL (3.6-10.0) H 03/31/23 22:18 RBC 4.24 X10^6/uL (3.5-5.4) 03/31/23 22:18 Hgb 8.7 g/dL (12.0-16.0) L 03/31/23 22:18 Hct 27.4 % (36.0-47.0) L 03/31/23 22:18 MCV 64.6 fL (80.0-100.0) L 03/31/23 22:18 MCH 20.6 pg (27.0-34.0) L 03/31/23 22:18 MCHC 31.8 g/dL (33.0-35.0) L 03/31/23 22:18 RDW 14.8 % (11.6-16.5) 03/31/23 22:18 Plt Count 174 X10^3/uL (150.0-450.0) 03/31/23 22:18 Plt Count Comment Adequate (ADEQUATE) 03/31/23 22:18 MPV 10.1 fL (7.4-11.0) 03/31/23 22:18 Neut % (Auto) 77.5 % (42.0-75.0) H 03/31/23 22:18 Lymph % (Auto) 13.2 % (21.0-51.0) L 03/31/23 22:18 Richardson % (Auto) 8.2 % (0.0-13.0) 03/31/23 22:18 Eos % (Auto) 0.5 % (0.9-2.9) L 03/31/23 22:18 Baso % (Auto) 0.6 % (0.2-1.0) 03/31/23 22:18 Neut # (Auto) 11.1 x10^3/uL (2.2-4.8) H 03/31/23 22:18 Lymph # (Auto) 1.9 X10^3/uL (1.3-2.9) 03/31/23 22:18 Richardson # (Auto) 1.2 x10^3/uL (0.3-0.8) H 03/31/23 22:18 Eos # (Auto) 0.1 x10^3/uL (0.0-0.2) 03/31/23 22:18 Baso # (Auto) 0.1 X10^3/uL (0.0-0.1) 03/31/23 22:18 Absolute Nucleated RBC 0.0 /100WBC 03/31/23 22:18 Total Counted 100 03/31/23 22:18 Neutrophils % (Manual) 80 % (39-76) H 03/31/23 22:18 Lymphocytes % (Manual) 14 % (13-43) 03/31/23 22:18 Monocytes % (Manual) 5 % (4-9) 03/31/23 22:18 Eosinophils % (Manual) 1 % (0-6) 03/31/23 22:18 Plt Morphology Comment Normal (NORMAL) 03/31/23 22:18 RBC Morphology Abnormal (NORMAL) A 03/31/23 22:18 Hypochromasia 2+ A 03/31/23 22:18 Poikilocytosis 1+ A 03/31/23 22:18 Microcytosis 2+ A 03/31/23 22:18 Target Cells 1+ A 03/31/23 22:18 Tear Drop Cells Slight A 03/31/23 22:18 Ovalocytes 1+ A 03/31/23 22:18 Acanthocytes (Spur) Slight 03/31/23 22:18 PT 14.0 SECONDS (11.8-14.3) 03/31/23 22:18 INR Target Range - 03/31/23 22:18 INR 1.10 (0.8-1.3) 03/31/23 22:18 APTT 33.5 SECONDS (22.9-36.5) 03/31/23 22:18 PTT Comment - 03/31/23 22:18 D-Dimer 3.04 ug/ml (0.0-0.57) H 03/31/23 22:18 Sodium 143 mmol/L (136-145) 03/31/23 22:18 Corrected Sodium 144 mmol/L (136-145) 03/31/23 22:18 Potassium 3.5 mmol/L (3.5-5.1) 03/31/23 22:18 Chloride 106 mmol/L (98-107) 03/31/23 22:18 Carbon Dioxide 30.8 mmol/L (21-32) 03/31/23 22:18 BUN 15 mg/dL (7-18) 03/31/23 22:18 Creatinine 0.93 mg/dL (0.55-1.02) 03/31/23 22:18 Est GFR (MDRD) Af Amer > 60 (>60) 03/31/23 22:18 Est GFR (MDRD) Non-Af > 60 (>60) 03/31/23 22:18 Glucose 123 mg/dL (65-99) H 03/31/23 22:18 Lactic Acid 1.3 mmol/L (0.4-2.0) 03/31/23 22:18 Calcium 8.3 mg/dL (8.5-10.1) L 03/31/23 22:18 Corrected Calcium TNP 03/31/23 22:18 Total Bilirubin 0.60 mg/dL (0.2-1.0) 03/31/23 22:18 AST 27 Units/L (15-37) 03/31/23 22:18 ALT 27 Units/L (12-78) 03/31/23 22:18 Alkaline Phosphatase 94 Units/L (46-116) 03/31/23 22:18 Creatine Kinase 171 Units/L (26-192) 04/01/23 00:30 Troponin I High Sens 18.0 ng/L (4.0-60.0) 04/01/23 00:30 C-Reactive Protein 213.90 mg/L (0-3.0) H 03/31/23 22:18 Total Protein 6.2 g/dL (6.4-8.2) L 03/31/23 22:18 Albumin 3.4 g/dL (3.4-5.0) 03/31/23 22:18 Globulin 2.8 g/dL (2.5-4.5) 03/31/23 22:18 Albumin/Globulin Ratio 1.2 Ratio (1.1-2.1) 03/31/23 22:18 Specimen Type Catherized urine 04/01/23 00:20 Urine Color Yellow (YELLOW) 04/01/23 00:20 Urine Appearance Clear (CLEAR) 04/01/23 00:20 Urine pH 8.0 (5.0 - 8.0) 04/01/23 00:20 Ur Specific [place] 1.010 (1.000-1.030) 04/01/23 00:20 Urine Protein 2+ (NEGATIVE) 04/01/23 00:20 Urine Glucose (UA) Negative (NEGATIVE) 04/01/23 00:20 Urine Ketones 2+ (NEGATIVE) 04/01/23 00:20 Urine Blood 1+ (NEGATIVE) 04/01/23 00:20 Urine Nitrite Negative (NEGATIVE) 04/01/23 00:20 Urine Bilirubin Negative (NEGATIVE) 04/01/23 00:20 Urine Urobilinogen Normal (NORMAL) 04/01/23 00:20 Ur Leukocyte Esterase Negative (NEGATIVE) 04/01/23 00:20 Urine RBC 0-2 /HPF (0-3) 04/01/23 00:20 Urine WBC 0-2 /HPF (0-5) 04/01/23 00:20 Ur Squamous Epith Cells Rare /HPF (NEGATIVE) 04/01/23 00:20 Urine Bacteria Negative /HPF (NEGATIVE) 04/01/23 00:20 Ur Culture Indicated? No/not indicated 04/01/23 00:20 SARS-CoV-2 (PCR) Negative (NEGATIVE) 03/31/23 22:23 Influenza Type A (PCR) Negative (NEGATIVE) 03/31/23 22:23 Influenza Type B (PCR) Negative (NEGATIVE) 03/31/23 22:23 RSV (PCR) Negative (NEGATIVE) 03/31/23 22:23 XRAY XRAY Interpreted by: Radiologist (REPORT NOTED.) and Self EKG Rate: 81 [place]: Normal Rhythm: NSR Block: None Hypertrophy: None ST: Nonsp Opioid Opioid Risk Tool Age (Sarwat box if 16-45): No History of Preadolescent Sexual Abuse: No Total: 0 Total Score Risk Category: Low Risk Copyright: Александр GOODRICH predicting aberrant behaviors Discharge Plan Diagnosis Discharge Problem: Acute bronchitis, Cough, persistent, Generalized weakness Discharge Plan Patient Disposition: ADMITTED INPATIENT Condition: Stable
--- NOTE | 2023-03-31 22:30 | EKG ---
Test Reason : CHEST TIGHTNESS Blood Pressure : */* mmHG Vent. Rate : 81 BPM Atrial Rate : 81 BPM P-R Int : 174 ms QRS Dur : 86 ms QT Int : 354 ms P-R-T Axes : 76 12 59 degrees QTc Int : 411 ms Normal sinus rhythm Nonspecific ST abnormality Abnormal ECG No previous ECGs available Confirmed by Chris Tariq ([id number]) on 04/01/2023 7:56:08 AM Referred By: Confirmed By: Chris Tariq
[2023-03-31 22:46] LABS: BASOPHILS # (AUTO) 0.1 X10^3/uL (0.0-0.1); BASOPHILS % (AUTO) 0.6 % (0.2-1.0); EOSINOPHILS # (AUTO) 0.1 x10^3/uL (0.0-0.2); EOSINOPHILS % (AUTO) 0.5 % (0.9-2.9); HEMATOCRIT 27.4 % (36.0-47.0); HEMOGLOBIN 8.7 g/dL (12.0-16.0); LYMPHOCYTES # (AUTO) 1.9 X10^3/uL (1.3-2.9); LYMPHOCYTES % (AUTO) 13.2 % (21.0-51.0); MEAN CORPUSCULAR HEMOGLOBIN 20.6 pg (27.0-34.0); MEAN CORPUSCULAR HGB CONC 31.8 g/dL (33.0-35.0); MEAN CORPUSCULAR VOLUME 64.6 fL (80.0-100.0); MEAN PLATELET VOLUME 10.1 fL (7.4-11.0); MONOCYTES # (AUTO) 1.2 x10^3/uL (0.3-0.8); MONOCYTES % (AUTO) 8.2 % (0.0-13.0); NEUTROPHILS # (AUTO) 11.1 x10^3/uL (2.2-4.8); NEUTROPHILS % (AUTO) 77.5 % (42.0-75.0); PLATELET COUNT 174 X10^3/uL (150.0-450.0); RED BLOOD COUNT 4.24 X10^6/uL (3.5-5.4); RED CELL DISTRIBUTION WIDTH 14.8 % (11.6-16.5); WHITE BLOOD COUNT 14.3 X10^3/uL (3.6-10.0)
[2023-03-31 22:47] LABS: ALANINE AMINOTRANSFERASE 27 Units/L (12-78); ALBUMIN 3.4 g/dL (3.4-5.0); ALKALINE PHOSPHATASE 94 Units/L (46-116); ASPARTATE AMINO TRANSFERASE 27 Units/L (15-37); BLOOD UREA NITROGEN 15 mg/dL (7-18); CALCIUM 8.3 mg/dL (8.5-10.1); CARBON DIOXIDE 30.8 mmol/L (21-32); CHLORIDE 106 mmol/L (98-107); COR NA(FOR HYPERGLY) 144 mmol/L (136-145); CREATINE KINASE 166 Units/L (26-192); CREATININE 0.93 mg/dL (0.55-1.02); GLUCOSE 123 mg/dL (65-99); POTASSIUM 3.5 mmol/L (3.5-5.1); SODIUM 143 mmol/L (136-145); TOTAL PROTEIN 6.2 g/dL (6.4-8.2); eGFR NON BLACK RACES > 60 (>60)
[2023-03-31 22:54] LABS: HYPOCHROMASIA 2+; MICROCYTOSIS 2+; PLATELET MORPHOLOGY COMMENT NORMAL (NORMAL); POIKILOCYTOSIS 1+; TARGET CELLS 1+
[2023-03-31 22:55] LABS: OVALOCYTES 1+; TEAR DROP CELLS SLIGHT
[2023-03-31] MEDS ORDERED: OMNIPAQUE 350 mg/mL 100 mL BTL 100 ML ONE (23:14)
[2023-04-01] MEDS ORDERED: ROCEPHIN VIAL 1 GRAM 1 G in NS 100 ML IV 100 ML IV ONE (00:26)
[2023-04-01 00:27] LABS: APPEARANCE,URINE CLEAR (CLEAR); BILIRUBIN,URINE NEGATIVE (NEGATIVE); BLOOD/HEMOGLOBIN,URINE 1+ (NEGATIVE); COLOR,URINE YELLOW (YELLOW); GLUCOSE, URINE NEGATIVE (NEGATIVE); KETONES,URINE 2+ (NEGATIVE); LEUKOCYTE ESTERASE ,URINE NEGATIVE (NEGATIVE); NITRITES,URINE NEGATIVE (NEGATIVE); PROTEIN,URINE 2+ (NEGATIVE); UROBILINOGEN,URINE NORMAL (NORMAL)
[2023-04-01] MEDS ORDERED: ROCEPHIN VIAL 1 GRAM ONE (00:29)
[2023-04-01] MEDS ORDERED: NS 100 ML IV 100 ML ONE (00:29)
[2023-04-01 00:35] LABS: BACTERIA,URINE NEGATIVE /HPF (NEGATIVE); RBC,URINE 0-2 /HPF (0-3); SQUAMOUS EPITHELIAL CELL,UR RARE /HPF (NEGATIVE)
--- NOTE | 2023-04-01 00:44 | CT ---
STUDY: CT HEAD WITHOUT IV CONTRASTCOMPARISON: 06/01/2022TECHNIQUE: axial images were acquired of the head without IV contrast. Coronal and sagittal images were provided. All images were reviewed in a variety of windows and levels.LIMITATIONS: Please note that CT has low sensitivity and accuracy for identifying acute infarction. In addition, there are portions of the brain that are affected by beam hardening artifact which further greatly limits identification of an acute infarct.RADIATION REDUCTION TECHNIQUE: Automated exposure control, Adjustment of the mA and/or kV according to patient size, or iterative reconstruction techniques were used.HISTORY: FallFINDINGS:There is diffuse cerebral atrophy with a regional distribution of low attenuation along the periventricular white matter most likely representing small vessel ischemic changes which are to a degree that would be considered within normal limits for the patient's stated age.There is no evidence of an acute intracranial bleed.There is no evidence of a mass or midline shift.There is no evidence of an extra-axial fluid collection.The renee-white matter differentiation is within normal limits.The visualized bones are unremarkable.The visualized sinuses are clear.The mastoid air cells are well-aerated.IMPRESSION:1. INVOLUTIONAL CHANGES ARE PRESENT WITH FINDINGS SUGGESTING SMALL VESSEL ISCHEMIC DISEASE WHICH IS TO A DEGREE THAT WOULD BE CONSIDERED WITHIN NORMAL LIMITS FOR THE PATIENT'S STATED AGE.2. THERE IS NO EVIDENCE OF ACUTE INTRACRANIAL BLEED.Mansoor redmond signed by: Cristino Valdes (Apr 01, 2023 00:43:04)
[2023-04-01] MEDS ORDERED: TESSALON PERLES PO ONE ×2 (01:16→01:17)
--- NOTE | 2023-04-01 01:37 | CT ---
STUDY: CTA CHEST WITH CONTRASTCOMPARISON: NoneTECHNIQUE: axial images were acquired of the chest with IV contrast for a CT angiogram. Coronal and sagittal images were provided. All images were reviewed in a variety of windows and levels. 3D 8 mm thick MIPS images were provided.RADIATION REDUCTION TECHNIQUE: Automated exposure control, Adjustment of the mA and/or kV according to patient size, or iterative reconstruction techniques were used. 8 mm thick axial MIPS images were provided.HISTORY: PT HAS HAD COUGH AND CONGESTION; ELEVATED D DIMERCHEST: Exam is limited by motionTHYROID GLAND: The thyroid gland is unremarkable.HEART AND VESSELS: The heart size is within normal limits. There is no evidence of a pericardial effusion. The thoracic aorta is normal in size without evidence of aneurysm or dissection. The main pulmonary artery size is dilated measuring 36 mm in diameter. Exam is limited due to motion. There is no evidence of a pulmonary embolism from the level of the main pulmonary artery to the origin of the segmental pulmonary arteries. Distal emboli beyond these points can not be accurately assessed on this examination. Please note that this exam is considered limited and therefore, close monitoring with follow up imaging may be obtained as clinically indicated.LYMPHNODES: There is no evidence of axillary, mediastinal, or hilar lymphadenopathy,AIRWAY: The trachea and mainstem bronchi are patent. No intraluminal lesions are seen.LUNGS: The lungs are clear bilaterally.There is no evidence of consolidation, pleural effusion, or pneumothorax.ESOPHAGUS: There is debris throughout the mid and distal esophagus. This could represent gastroesophageal reflux disease.BONES: The visualized bones demonstrate degenerative changes. There are no concerning lytic or blastic lesions identified.UPPER ABDOMINAL STRUCTURES: The visualized portions of the upper abdominal structures demonstrates a complex left renal cyst with internal septations. Status post cholecystectomy.IMPRESSION:1. Exam is limited due to motion. There is no evidence of a pulmonary embolism from the level of the main pulmonary artery to the origin of the segmental pulmonary arteries. Distal emboli beyond these points can not be accurately assessed on this examination. Please note that this exam is considered limited and therefore, close monitoring with follow up imaging may be obtained as clinically indicated.2. Findings suggest gastroesophageal reflux disease3. Pulmonary hypertension is suggested.4. Complex left renal cyst is noted as detailed above5. No focal consolidation is seen.Electronically signed by: Cristino Valdes (Apr 01, 2023 01:36:24)
[2023-04-01] MEDS ORDERED: TUSSIONEX PENNKINETIC SUSP PO ONE (02:23)
[2023-04-01] MEDS ORDERED: TUSSIONEX PENNKINETIC SUSP ONE (02:24)
[2023-04-01] MEDS ORDERED: NS 1,000 ML IV 1,000 ML IV SCH (03:03)
[2023-04-01] MEDS ORDERED: COREG TAB 6.25 MG PO SCH (03:03)
[2023-04-01] MEDS: TESSALON PERLES PO SCH ×3 (03:08→20:25)
[2023-04-01 03:23] VITALS: BMI 25.0
[2023-04-01 05:00] LABS: BASOPHILS % (AUTO) 0.2 % (0.2-1.0); EOSINOPHILS % (AUTO) 0.3 % (0.9-2.9); HEMATOCRIT 24.5 % (36.0-47.0); LYMPHOCYTES # (AUTO) 1.7 X10^3/uL (1.3-2.9); MEAN CORPUSCULAR HEMOGLOBIN 20.8 pg (27.0-34.0); MEAN CORPUSCULAR HGB CONC 32.5 g/dL (33.0-35.0); MEAN PLATELET VOLUME 10.3 fL (7.4-11.0); MONOCYTES # (AUTO) 1.1 x10^3/uL (0.3-0.8); NEUTROPHILS # (AUTO) 8.2 x10^3/uL (2.2-4.8); NEUTROPHILS % (AUTO) 74.5 % (42.0-75.0); PLATELET COUNT 160 X10^3/uL (150.0-450.0); RED BLOOD COUNT 3.83 X10^6/uL (3.5-5.4); RED CELL DISTRIBUTION WIDTH 14.7 % (11.6-16.5)
[2023-04-01 05:08] LABS: BLOOD UREA NITROGEN 11 mg/dL (7-18); CALCIUM 8.3 mg/dL (8.5-10.1); CARBON DIOXIDE 28.9 mmol/L (21-32); CHLORIDE 107 mmol/L (98-107); CREATININE 0.77 mg/dL (0.55-1.02); GLUCOSE 105 mg/dL (65-99); POTASSIUM 3.2 mmol/L (3.5-5.1); SODIUM 143 mmol/L (136-145); eGFR NON BLACK RACES > 60 (>60)
[2023-04-01 05:21] LABS: HYPOCHROMASIA 2+; MICROCYTOSIS 2+; OVALOCYTES 1+; PLATELET MORPHOLOGY COMMENT NORMAL (NORMAL); POIKILOCYTOSIS 1+; TARGET CELLS 1+; TEAR DROP CELLS SLIGHT
[2023-04-01] MEDS: DUONEB 0.5 MG/3 MG (3 mL) NEB SCH ×4 (05:40→17:23)
[2023-04-01] MEDS: FORTAZ or TAZICEF VIAL INJ 1 G in NS 100 ML IV 100 ML IV SCH ×4 (05:44→21:43)
[2023-04-01] MEDS ORDERED: CONSULT PHARMACY - POTASSIUM & MAGNESIUM XX SCH (06:00)
[2023-04-01] MEDS ORDERED: FORTAZ or TAZICEF VIAL INJ 1 G in NS 100 ML IV + SPIKE MINIBAG* 100 ML IV SCH (06:00)
[2023-04-01] MEDS: VSL#3 PO SCH (08:19)
[2023-04-01] MEDS: SOLU-Medrol 40 MG VIAL IVP SCH ×2 (08:19→20:25)
[2023-04-01] MEDS: COREG TAB 6.25 MG PO SCH ×2 (08:19→20:25)
[2023-04-01] MEDS: K-DUR TAB 20 MEQ PO SCH ×2 (08:19→10:34)
[2023-04-01] MEDS: PLAVIX PO SCH (08:19)
[2023-04-01] MEDS: MAGNESIUM SULFATE 1 GRAM/100 mL PREMIX 1 G/100 ML BAG IV SCH ×2 (08:19→10:33)
[2023-04-01] MEDS: OXYBUTYNIN CHLORIDE ER PO SCH (08:20)
[2023-04-01] MEDS: COZAAR PO SCH (08:20)
[2023-04-01] MEDS: NORVASC TAB 5 MG PO SCH ×2 (08:20→20:25)
[2023-04-01] MEDS: MEMANTINE 14 MG PO SCH (09:22)
--- NOTE | 2023-04-01 10:31 | RAD ---
HISTORYC/O FALLING ON LEFT HIP. STATES SHE WAS IN THE FLOOR FOR APPROX 2 HRS BEFORE SHE COULD GET HER FAMILY TO GET HER UP. ALSO PT HAS HAD COUGH AND CONGESTIONSTUDYCHEST, 1 VIEWCOMPARISONSeptember 2001TECHNIQUEPortable chest radiographFINDINGSHeart size is magnified by projection and rotation on the film. There is no mediastinal widening observed. Atheromatous changes of the aortic knob are demonstrated. There is biapical pleural thickening. Right lung is predominantly clear. Peribronchial cuffing is observed in the perihilar regions radiating into the lower lobes. There is questionable subsegmental streaky airspace opacities in the retrocardiac space of the left lower lobe. No pleural fluid collections, free air or pneumothorax identified. No acute osseous abnormalities of the chest are identified by conventional radiography.IMPRESSIONPeribronchial thickening suggesting bronchial inflammatory changes with suspected subsegmental left lower lobe retrocardiac opacities representing atelectasis or pneumonia in the appropriate setting.Routine follow-up recommended to ensure clearance. Two views of the chest are preferred, if possible.Electronically signed by: HEATH VIDALES (Apr 01, 2023 10:27:33)
--- NOTE | 2023-04-01 14:09 | RAD ---
HISTORYC/O FALLING ON LEFT HIP. STATES SHE WAS IN THE FLOOR FOR APPROX 2 HRS BEFORE SHE COULD GET HER FAMILY TO GET HER UP. ALSO PT HAS HAD COUGH AND CONGESTIONSTUDYHIP, LEFT, single AP view of the pelvis and single large [id number] AP projection of the left hip.COMPARISONNone availableFINDINGSNo convincing acute fracture or malalignment is identified on the single provided AP view of the pelvis and single provided large [id number] AP projection of the left hip.There are mild degenerative changes of the bilateral hips as well as intact SI joints and pubic symphysis. Spondylosis of the imaged lower lumbar spine also noted. There is no gross soft tissue injury.IMPRESSIONDegenerative changes as above without convincing acute osseous abnormality.Electronically signed by: VINCE CAI (Apr 01, 2023 14:07:11)
[2023-04-01] MEDS ORDERED: NS + KCL 20 MEQ/L 1,000 ML IV PRN (15:23)
[2023-04-01] MEDS: NS + KCL 20 MEQ/L 1,000 ML IV SCH (16:39)
--- NOTE | 2023-04-01 18:39 | DR.H&P ---
H&P - History & Physical for Day of: H&P Date: 04/01/23 - Chief Complaint Chief Complaint: LEFT HIP PAIN, COUGH, CONGESTION - History of Present Illness History of Present Illness: IS A 82 YEAR OLD PATIENT OF [place]. SHE PRESENTED TO THE ER AFTER HER FAMILY FOUND HER LYING ON THE FLOOR AT HOME DUE TO FALLING TWO HOURS PRIOR. SHE COMPLAINED OF LEFT HIP PAIN, COUGH, AND CONGESTION. HIP PAIN STARTED AFTER FALLING, BUT COUGH AND CONGESTION HAS BEEN PRESENT FOR ABOUT A WEEK. SHE IS CURRENTLY TAKING ZITHROMAX AND PREDNISONE WHICH WERE PRESCRIBED BY HER PROVIDER FOR TREATMENT OF BRONCHITIS. SHE DENIES FEVER, DYSURIA, VOMITING, OR DIARRHEA. HER PMH INCLUDES ARTHRITIS, DYSLIPDEMIA, HTN, THALASSEMIA B MINOR, CHOLECYSTECTOMY, HYSTERECTOMY, AND ORTHO SURGERY. ON ARRIVAL TO THE HOSPITAL, HER VITALS WERE: 99.5-89-24-95%-128/58. LABS WERE OBTAINED. WBC 14.3, RBC 4.24, HGB 8.7, HCT 27.4, PLT COUNT 174, D-DIMER 3.04, PT 14.0, INR 1.10, SODIUM 143, POTASSIUM 3.5, CHLORIDE 106, CARBON DIOXIDE 30.8, BUN 15, CREATININE 0.93, GLUCOSE 123, CALCIUM 8.3, TOTAL BILI 0.60, AST 27, ALT 27, ALK PHOS 94, CREATINE KINASE 166, TROPONIN 13.3, CRP 213.90, TOTAL PROTEIN 6.2, ALBUMIN 3.4. COVID, INFLUENZA, AND RSV WERE NEGATIVE. PERTUSSIS PENDING. A URINALYSIS WAS OBTAINED AND REVEALED: WBC 0-2, RBC 0-2, LEUKOCYTES NEGATIVE, BACTERIA NEGATIVE. BLOOD CULTURES WERE SET UP. A CHEST XRAY WAS OBTAINED AND REVEALED: Peribronchial thickening suggesting bronchial inflammatory changes with suspected subsegmental left lower lobe retrocardiac opacities representing atelectasis or pneumonia in the appropriate setting. A CHEST CTA WAS OBTAINED AND REVEALED: 1. Exam is limited due to motion. There is no evidence of a pulmonary embolism from the level of the main pulmonary artery to the origin of the segmental pulmonary arteries. Distal emboli beyond these points can not be accurately assessed on this examination. Please note that this exam is considered limited and therefore, close monitoring. with follow up imaging may be obtained as clinically indicated. 2. Findings suggest gastroesophageal reflux disease 3. Pulmonary hypertension is suggested. 4. Complex left renal cyst 5. No focal consolidation is seen. A LEFT HIP XRAY WAS OBTAINED AND REVEALED: No convincing acute fracture or malalignment is identified on the single provided AP view of the pelvis and single provided large [id number] AP projection of the left hip. There are mild degenerative changes of the bilateral hips as well as intact SI joints and pubic symphysis. Spondylosis of the imaged lower lumbar spine also noted. There is no gross soft tissue injury. A BRAIN CT WITHOUT CONTRAST WAS OBTAINED AND REVEALED: 1. INVOLUTIONAL CHANGES ARE PRESENT WITH FINDINGS SUGGESTING SMALL VESSEL ISCHEMIC DISEASE WHICH IS TO A DEGREE THAT WOULD BE CONSIDERED WITHIN NORMAL LIMITS FOR THE PATIENT'S STATED AGE. 2. THERE IS NO EVIDENCE OF ACUTE INTRACRANIAL BLEED. EKG REVEALED: NORMAL SINUS RHYTHN WITH HR 81 BPM. IN THE ER, SHE WAS GIVEN ROCEPHIN 1G IV X 1 DOSE, TUSSIONEX 5ML X 1 DOSE, TESSALON PERLES 100MG X 1 DOSE. SHE WAS ADMITTED TO THE HOSPITAL INPATIENT STATUS FOR FURTHER EVALUATION AND TREATMENT OF LEFT LOWER LUNG PNEUMONIA, FAILED OUTPATIENT TREATMENT, HTN, DYSLIPIDEMIA, ANEMIA. SHE WAS STARTED ON NORMAL SALINE WITH 20MEQ KCL AT 75 ML/HR, FORTAZ 1G IV Q8H, SOLU- MEDROL 40MG IV Q12H, TUSSIONEX 2.5ML Q12H PRN, TESSALON PERLES 100MG PO Q8H, PROBIOTICS, AND HER HOME MEDICATIONS WERE RESUMED. HOME MEDS INCLUDE NORVASC, LIPITOR, COREG, PLAVIX, COZAAR, AND OXYBUTYNIN. OTHERWISE, WE WILL FOLLOW UP WITH AM LABS AND CONTINUE TO MONITOR. TIME SPENT ON CLINICAL ASSESSMENT, REVIEWING LABS AND IMAGING, DECISION MAKING, AND DOCUMENTATION GREATER THAN 75 MINUTES. - Past Medical History Past Medical History: Hypertension, Dyslipidemia, Arthritis - Past Surgical History Surgical History: Cholecystectomy, Hysterectomy, Ortho Surgery - Family History Family Medical History: [place], Coronary Artery Disease, Heart Failure, Sudden Cardiac , Hypertension - Social History Does patient currently use any type of tobacco product: No Have you used tobacco products in the last 12 months: No Type of Tobacco Use: None Does any household member use tobacco: No Alcohol Use: None Drug Use: None - Review of Systems Constitutional: Weakness Eyes: No Symptoms Reported ENT: No Symptoms Reported Respiratory: See HPI, Cough, Shortness of Breath, SOB with Excertion Cardiovascular: No Symptoms Reported Gastrointestinal: No Symptoms Reported Genitourinary: No Symptoms Reported Musculoskeletal: See HPI, Other (LEFT HIP PAIN ) Skin: No Symptoms Reported Neurological: Weakness - Physical Exam Vital Signs: Vital Signs Pulse Rate 71 Pulse Rate 71 Pulse Rate 70 Pulse Rate 70 Pulse Rate 75 Pulse Rate 73 Pulse Rate 73 Pulse Rate 75 Pulse Rate 73 Pulse Rate 68 Pulse Rate 69 Pulse Rate 71 Pulse Rate 71 Pulse Rate 77 Pulse Rate 75 Pulse Rate 80 Pulse Rate 80 Pulse Rate 80 Pulse Rate 70 Pulse Rate 66 Pulse Rate 68 Pulse Rate 70 Pulse Rate 70 Pulse Rate 68 Pulse Rate 69 Pulse Rate 69 Pulse Rate 72 Respiratory Rate 22 Respiratory Rate 17 Respiratory Rate 17 Respiratory Rate 23 Respiratory Rate 22 Respiratory Rate 29 Respiratory Rate 24 Respiratory Rate 31 Respiratory Rate 32 Respiratory Rate 17 Respiratory Rate 19 Respiratory Rate 21 Respiratory Rate 20 Respiratory Rate 30 Respiratory Rate 19 Respiratory Rate 31 Respiratory Rate 24 Respiratory Rate 35 Respiratory Rate 28 Respiratory Rate 27 Respiratory Rate 21 Respiratory Rate 30 Respiratory Rate 24 Respiratory Rate 23 Respiratory Rate 22 Respiratory Rate 21 Respiratory Rate 32 Blood Pressure 123/62 Blood Pressure 135/60 Blood Pressure 111/65 Blood Pressure 114/51 Blood Pressure 129/63 Blood Pressure 127/60 O2 Sat by Pulse Oximetry 95 O2 Sat by Pulse Oximetry 95 O2 Sat by Pulse Oximetry 94 O2 Sat by Pulse Oximetry 94 O2 Sat by Pulse Oximetry 95 O2 Sat by Pulse Oximetry 97 O2 Sat by Pulse Oximetry 98 O2 Sat by Pulse Oximetry 97 O2 Sat by Pulse Oximetry 97 O2 Sat by Pulse Oximetry 97 O2 Sat by Pulse Oximetry 97 O2 Sat by Pulse Oximetry 97 O2 Sat by Pulse Oximetry 96 O2 Sat by Pulse Oximetry 95 O2 Sat by Pulse Oximetry 98 O2 Sat by Pulse Oximetry 97 O2 Sat by Pulse Oximetry 94 O2 Sat by Pulse Oximetry 89 O2 Sat by Pulse Oximetry 100 O2 Sat by Pulse Oximetry 91 O2 Sat by Pulse Oximetry 91 O2 Sat by Pulse Oximetry 91 O2 Sat by Pulse Oximetry 91 O2 Sat by Pulse Oximetry 91 O2 Sat by Pulse Oximetry 91 O2 Sat by Pulse Oximetry 89 O2 Sat by Pulse Oximetry 93 Oriented: Normal Eyes: Normal Ear: Normal Nose: Normal Throat: Normal Respiratory: Rhonchi Throughout Cardiovascular: Normal : Normal Auscultation: Bowel Sounds: Normal Palpation: Normal Tenderness: Normal Skin: Normal Musculoskeletal: Left, Hip, Tender Psychiatric: Normal Mood Description: Calm Affect: Normal Speech Pattern: Clear - Assessment/Plan (1) Left lower lobe pneumonia Qualifiers: Pneumonia type: due to unspecified organism Qualified Code(s): J18.9 - Pneumonia, unspecified organism Status: Acute Plan: ADMIT, SUPPLEMENTAL OXYGEN, NORMAL SALINE WITH 20MEQ KCL AT 75 ML/HR, FORTAZ 1G IV Q8H, SOLU-MEDROL 40MG IV Q12H, TUSSIONEX 2.5ML Q12H PRN, TESSALON PERLES 100MG PO Q8H, PROBIOTICS, AND HER HOME MEDICATIONS WERE RESUMED. HOME MEDS INCLUDE NORVASC, LIPITOR, COREG, PLAVIX, COZAAR, AND OXYBUTYNIN. 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 (4) Hyperlipidemia Qualifiers: Hyperlipidemia type: mixed hyperlipidemia Qualified Code(s): E78.2 - Mixed hyperlipidemia Status: Chronic - Allergies Allergies/Adverse Reactions: Allergies Allergy/AdvReac Type Severity Reaction Status Date / Time No Known Drug Allergies Allergy Verified 03/31/23 22:42 - Medications Home Medications: Home Medications Medication Instructions Recorded Confirmed amlodipine 5 mg tablet 5 mg PO BID 03/31/23 03/31/23 atorvastatin 10 mg tablet 10 mg PO QPM 03/31/23 03/31/23 azithromycin 500 mg tablet 500 mg PO DAILY 03/31/23 03/31/23 benzonatate 100 mg capsule 100 mg PO Q8H 03/31/23 03/31/23 carvedilol 6.25 mg tablet 6.25 mg PO Q12H 03/31/23 03/31/23 clopidogrel 75 mg tablet 75 mg PO QDAY 03/31/23 03/31/23 losartan 25 mg tablet 25 mg PO QDAY 03/31/23 03/31/23 memantine 14 mg capsule 14 mg PO QDAY 03/31/23 03/31/23 sprinkle,extended release 24hr oxybutynin chloride 10 mg 10 mg PO QDAY bladder muscle 03/31/23 03/31/23 tablet,extended release 24 hr dysfunction prednisone 5 mg tablet 5 mg PO Q12H 03/31/23 03/31/23
[2023-04-01] MEDS: LIPITOR TAB 10 MG PO SCH (20:25)
[2023-04-02] MEDS: DUONEB 0.5 MG/3 MG (3 mL) NEB SCH ×4 (00:03→17:11)
[2023-04-02] MEDS: TESSALON PERLES PO SCH ×3 (02:42→19:03)
[2023-04-02] MEDS: TUSSIONEX PENNKINETIC SUSP PO PRN (04:12)
[2023-04-02] MEDS: NS + KCL 20 MEQ/L 1,000 ML IV SCH ×2 (05:05→20:05)
[2023-04-02] MEDS: FORTAZ or TAZICEF VIAL INJ 1 G in NS 100 ML IV 100 ML IV SCH ×3 (05:10→21:46)
[2023-04-02 05:14] LABS: BASOPHILS % (AUTO) 0.2 % (0.2-1.0); HEMATOCRIT 24.2 % (36.0-47.0); HEMOGLOBIN 7.9 g/dL (12.0-16.0); LYMPHOCYTES # (AUTO) 0.6 X10^3/uL (1.3-2.9); LYMPHOCYTES % (AUTO) 7.1 % (21.0-51.0); MEAN CORPUSCULAR HEMOGLOBIN 20.9 pg (27.0-34.0); MEAN CORPUSCULAR HGB CONC 32.6 g/dL (33.0-35.0); MEAN PLATELET VOLUME 10.2 fL (7.4-11.0); MONOCYTES # (AUTO) 0.2 x10^3/uL (0.3-0.8); MONOCYTES % (AUTO) 2.5 % (0.0-13.0); NEUTROPHILS # (AUTO) 8.1 x10^3/uL (2.2-4.8); NEUTROPHILS % (AUTO) 90.2 % (42.0-75.0); PLATELET COUNT 179 X10^3/uL (150.0-450.0); RED BLOOD COUNT 3.77 X10^6/uL (3.5-5.4); RED CELL DISTRIBUTION WIDTH 15.2 % (11.6-16.5)
[2023-04-02 05:27] LABS: ALANINE AMINOTRANSFERASE 38 Units/L (12-78); ALBUMIN 2.9 g/dL (3.4-5.0); ALKALINE PHOSPHATASE 92 Units/L (46-116); ASPARTATE AMINO TRANSFERASE 36 Units/L (15-37); BLOOD UREA NITROGEN 14 mg/dL (7-18); CALCIUM 8.1 mg/dL (8.5-10.1); CARBON DIOXIDE 25.1 mmol/L (21-32); CHLORIDE 111 mmol/L (98-107); COR NA(FOR HYPERGLY) 147 mmol/L (136-145); CREATININE 0.86 mg/dL (0.55-1.02); GLUCOSE 190 mg/dL (65-99); POTASSIUM 4.1 mmol/L (3.5-5.1); SODIUM 145 mmol/L (136-145); TOTAL PROTEIN 5.9 g/dL (6.4-8.2); eGFR NON BLACK RACES > 60 (>60)
[2023-04-02 05:46] LABS: BAND NEUTROPHILS % 3 % (0-10)
[2023-04-02 05:47] LABS: GIANT PLATELET FEW; HYPOCHROMASIA 2+; MICROCYTOSIS 2+; OVALOCYTES SLIGHT; PLATELET MORPHOLOGY COMMENT ABNORMAL (NORMAL); POIKILOCYTOSIS 1+; TARGET CELLS 1+
--- NOTE | 2023-04-02 07:58 | RAD ---
HISTORYACUTE BRONCHITIS, SOBSTUDYCHEST, 1 [id number]/2023.TECHNIQUEPA or AP view of the chestFINDINGSCardiac and mediastinal contours are within normal limits. Similar peribronchial thickening in the lower lobes. Mild left base patchy opacity. Blunted left costophrenic sulcus. No pneumothorax.IMPRESSIONNo significant change compared to prior radiograph. Periorbital thickening with patchy left base opacities may represent chronic bronchitis with atelectasis or pneumonia. Blunted left costophrenic sulcus can be seen with small pleural effusion or pleuro-parynchemal scarring.Electronically signed by: Rudy Gonzales (Apr 02, 2023 07:56:40)
[2023-04-02] MEDS: NORVASC TAB 5 MG PO SCH ×2 (08:43→20:01)
[2023-04-02] MEDS: COZAAR PO SCH (08:43)
[2023-04-02] MEDS: VSL#3 PO SCH (08:43)
[2023-04-02] MEDS: OXYBUTYNIN CHLORIDE ER PO SCH (08:44)
[2023-04-02] MEDS: COREG TAB 6.25 MG PO SCH ×2 (08:45→20:01)
[2023-04-02] MEDS: PLAVIX PO SCH (08:45)
[2023-04-02] MEDS: SOLU-Medrol 40 MG VIAL IVP SCH ×2 (08:56→20:05)
[2023-04-02] MEDS: NAMENDA TAB 10 MG PO SCH (10:10)
--- NOTE | 2023-04-02 10:41 | PCM.PROG ---
Progress Note - Progress Note for Day of Date of Exam: 04/02/23 - Subjective Subjective: IS CURRENTLY INPATIENT STATUS FOR TREATMENT OF LEFT LOWER LOBE PNEUMONIA, ANEMIA, GENERALIZED WEAKNESS, AND HTN. HER PMH INCLUDES ARTHRITIS, DYSLIPDEMIA, HTN, THALASSEMIA B MINOR, CHOLECYSTECTOMY, HYSTERECTOMY, AND ORTHO SURGERY. TODAY, SHE IS ALERT AND ORIENTED, SITTING UP IN BED ON MORNING ROUNDS. SHE CONTINUES TO COMPLAIN OF A COUGH AND SHORTNESS OF BREATH. SHE DENIES SIGNIFICANT IMPROVEMENT IN SYMPTOMS SINCE ADMISSION. SHE IS CURRENTLY UTILIZING OXYGEN VIA NASAL CANNULA AT 2 LPM. SATURATIONS HAVE REMAINED IN THE 90s THROUGHOUT THE NIGHT. ON EXAMIANTION, HEART IS REGULAR IN RATE AND RHYTHM. BILATERAL LUNGS ARE NOTED WITH RHONCHI THROUGHOUT. ABDOMEN IS ROUND, SOFT, AND NON-TENDER WITH NORMAL BOWEL SOUNDS NOTED IN ALL QUADRANTS. GOOD RANGE OF MOTION NOTED TO UPPER AND LOWER EXTREMITIES WITH NO EDEMA NOTED. HER VITALS THIS MORNING ARE: 98.0-82-20-95%-131/65. LABS WERE OBTAINED. WBC 9.0, RBC 3.77, HGB 7.9, HCT 24.2, PLT COUNT 179, SODIUM 145, POTASSIUM 4.1, CHLORIDE 111, BUN 14, CREATININE 0.86, GLUCOSE 190, CALCIUM 8.1, MAGNESIUM 1.9, AST 36, ALT 38, ALK PHOS 92, CRP 197.20, TOTAL PROTEIN 5.9, ALBUMIN 2.9. PERTUSSIS PCR IS PENDING. COVID, INFLUENZA, AND RSV WERE NEGATIVE. BLOOD CULTURES ARE PENDING. CHEST XRAY WAS REPEATED THIS MORNING AND REVEALED: No significant change compared to prior radiograph. Periorbital thickening with patchy left base opacities may represent chronic bronchitis with atelectasis or pneumonia. Blunted left costophrenic sulcus can be seen with small pleural effusion or pleuro-parynchemal scarring. SHE IS CURRENTLY RECEIVING NORMAL SALINE WITH 20MEQ KCL AT 75 ML/HR, FORTAZ 1G IV Q8H, SOLU-MEDROL 40MG IV Q12H, TUSSIONEX 2.5ML Q12H PRN, TESSALON PERLES 100MG PO Q8H, PROBIOTICS, AND HER HOME MEDICATIONS WERE RESUMED. HOME MEDS INCLUDE NORVASC, LIPITOR, COREG, PLAVIX, COZAAR, AND OXYBUTYNIN. SHE DID REQUIRE A DOSE OF TUSSIONEX EARLY THIS MORNING FOR COUGH. WE WILL CONTINUE HER CURRENT PLAN OF CARE TODAY. OTHERWISE, WE PLAN TO FOLLOW UP WITH AM LABS AND CHEST XRAY AND CONTINUE TO MONITOR. TIME SPENT ON CLINICAL ASSESSMENT, REVIEWING LABS AND IMAGING, DECISION MAKING, AND DOCUMENTATION GRATER THAN 45 MINUTES. - Past Medical Family Social History Past Med/Fam/Surg Hx: No changes since H&P Allergies: Allergies No Known Drug Allergies Allergy (Verified 03/31/23 22:42) - Review of Systems ROS: No change since H&P - Vital Signs and I&O's Vital Signs: Vital Signs Temperature 98.0 F Temperature 98.2 F Pulse Rate 82 Pulse Rate 83 Respiratory Rate 20 Respiratory Rate 20 Blood Pressure 131/65 Blood Pressure 164/70 O2 Sat by Pulse Oximetry 95 O2 Sat by Pulse Oximetry 96 Intake and Output: Intake & Output 03/30/23 03/31/23 04/01/23 04/02/23 11:59 11:59 11:59 11:59 Intake Total 160 / 160 2278 / 2278 Balance 160 / 160 2278 / 2278 - Physical Exam Oriented: Normal Eyes: Normal Ear: Normal Nose: Normal Throat: Normal Respiratory: Rhonchi Cardiovascular: Normal : Normal Auscultation: Bowel Sounds: Normal Palpation: Normal Tenderness: Normal Skin: Normal Musculoskeletal: Left, Hip, Tender Psychiatric: Normal Mood Description: Calm Affect: Normal Speech Pattern: Clear, Appropriate - Laboratory and Diagnostics Result Diagrams: 04/02/23 04:41 04/02/23 04:41 Labs: Laboratory WBC 9.0 X10^3/uL (3.6-10.0) 04/02/23 04:41 RBC 3.77 X10^6/uL (3.5-5.4) 04/02/23 04:41 Hgb 7.9 g/dL (12.0-16.0) L 04/02/23 04:41 Hct 24.2 % (36.0-47.0) L 04/02/23 04:41 MCV 64.0 fL (80.0-100.0) L 04/02/23 04:41 MCH 20.9 pg (27.0-34.0) L 04/02/23 04:41 MCHC 32.6 g/dL (33.0-35.0) L 04/02/23 04:41 RDW 15.2 % (11.6-16.5) 04/02/23 04:41 Plt Count 179 X10^3/uL (150.0-450.0) 04/02/23 04:41 Plt Count Comment Adequate (ADEQUATE) 04/02/23 04:41 MPV 10.2 fL (7.4-11.0) 04/02/23 04:41 Neut % (Auto) 90.2 % (42.0-75.0) H 04/02/23 04:41 Lymph % (Auto) 7.1 % (21.0-51.0) L 04/02/23 04:41 Barber % (Auto) 2.5 % (0.0-13.0) 04/02/23 04:41 Eos % (Auto) 0.0 % (0.9-2.9) L 04/02/23 04:41 Baso % (Auto) 0.2 % (0.2-1.0) 04/02/23 04:41 Neut # (Auto) 8.1 x10^3/uL (2.2-4.8) H 04/02/23 04:41 Lymph # (Auto) 0.6 X10^3/uL (1.3-2.9) L 04/02/23 04:41 Barber # (Auto) 0.2 x10^3/uL (0.3-0.8) L 04/02/23 04:41 Eos # (Auto) 0.0 x10^3/uL (0.0-0.2) 04/02/23 04:41 Baso # (Auto) 0.0 X10^3/uL (0.0-0.1) 04/02/23 04:41 Absolute Nucleated RBC 0.0 /100WBC 04/02/23 04:41 Total Counted 100 04/02/23 04:41 Neutrophils % (Manual) 88 % (39-76) H 04/02/23 04:41 Band Neutrophils % 3 % (0-10) 04/02/23 04:41 Lymphocytes % (Manual) 8 % (13-43) L 04/02/23 04:41 Monocytes % (Manual) 1 % (4-9) L 04/02/23 04:41 Eosinophils % (Manual) 1 % (0-6) 03/31/23 22:18 Giant Platelets Few 04/02/23 04:41 Plt Morphology Comment Abnormal (NORMAL) A 04/02/23 04:41 RBC Morphology Abnormal (NORMAL) A 04/02/23 04:41 Hypochromasia 2+ A 04/02/23 04:41 Poikilocytosis 1+ A 04/02/23 04:41 Microcytosis 2+ A 04/02/23 04:41 Target Cells 1+ A 04/02/23 04:41 Tear Drop Cells Slight A 04/01/23 04:26 Ovalocytes Slight A 04/02/23 04:41 Acanthocytes (Spur) Slight 04/02/23 04:41 PT 14.0 SECONDS (11.8-14.3) 03/31/23 22:18 INR Target Range - 03/31/23 22:18 INR 1.10 (0.8-1.3) 03/31/23 22:18 APTT 33.5 SECONDS (22.9-36.5) 03/31/23 22:18 PTT Comment - 03/31/23 22:18 D-Dimer 3.04 ug/ml (0.0-0.57) H 03/31/23 22:18 Sodium 145 mmol/L (136-145) 04/02/23 04:41 Corrected Sodium 147 mmol/L (136-145) H 04/02/23 04:41 Potassium 4.1 mmol/L (3.5-5.1) 04/02/23 04:41 Chloride 111 mmol/L (98-107) H 04/02/23 04:41 Carbon Dioxide 25.1 mmol/L (21-32) 04/02/23 04:41 BUN 14 mg/dL (7-18) 04/02/23 04:41 Creatinine 0.86 mg/dL (0.55-1.02) 04/02/23 04:41 Est GFR (MDRD) Af Amer > 60 (>60) 04/02/23 04:41 Est GFR (MDRD) Non-Af > 60 (>60) 04/02/23 04:41 Glucose 190 mg/dL (65-99) H 04/02/23 04:41 Lactic Acid 1.3 mmol/L (0.4-2.0) 03/31/23 22:18 Calcium 8.1 mg/dL (8.5-10.1) L 04/02/23 04:41 Corrected Calcium 9.0 mg/dL (8.5-10.1) 04/02/23 04:41 Magnesium 1.9 mg/dL (2.0-2.9) L 04/01/23 04:26 Total Bilirubin 0.30 mg/dL (0.2-1.0) 04/02/23 04:41 AST 36 Units/L (15-37) 04/02/23 04:41 ALT 38 Units/L (12-78) 04/02/23 04:41 Alkaline Phosphatase 92 Units/L (46-116) 04/02/23 04:41 Creatine Kinase 171 Units/L (26-192) 04/01/23 00:30 Troponin I High Sens 18.0 ng/L (4.0-60.0) 04/01/23 00:30 C-Reactive Protein 197.20 mg/L (0-3.0) H 04/02/23 04:41 Total Protein 5.9 g/dL (6.4-8.2) L 04/02/23 04:41 Albumin 2.9 g/dL (3.4-5.0) L 04/02/23 04:41 Globulin 3.0 g/dL (2.5-4.5) 04/02/23 04:41 Albumin/Globulin Ratio 1.0 Ratio (1.1-2.1) L 04/02/23 04:41 Specimen Type Catherized urine 04/01/23 00:20 Urine Color Yellow (YELLOW) 04/01/23 00:20 Urine Appearance Clear (CLEAR) 04/01/23 00:20 Urine pH 8.0 (5.0 - 8.0) 04/01/23 00:20 Ur Specific Kinsey 1.010 (1.000-1.030) 04/01/23 00:20 Urine Protein 2+ (NEGATIVE) 04/01/23 00:20 Urine Glucose (UA) Negative (NEGATIVE) 04/01/23 00:20 Urine Ketones 2+ (NEGATIVE) 04/01/23 00:20 Urine Blood 1+ (NEGATIVE) 04/01/23 00:20 Urine Nitrite Negative (NEGATIVE) 04/01/23 00:20 Urine Bilirubin Negative (NEGATIVE) 04/01/23 00:20 Urine Urobilinogen Normal (NORMAL) 04/01/23 00:20 Ur Leukocyte Esterase Negative (NEGATIVE) 04/01/23 00:20 Urine RBC 0-2 /HPF (0-3) 04/01/23 00:20 Urine WBC 0-2 /HPF (0-5) 04/01/23 00:20 Ur Squamous Epith Cells Rare /HPF (NEGATIVE) 04/01/23 00:20 Urine Bacteria Negative /HPF (NEGATIVE) 04/01/23 00:20 Ur Culture Indicated? No/not indicated 04/01/23 00:20 SARS-CoV-2 (PCR) Negative (NEGATIVE) 03/31/23 22:23 Influenza Type A (PCR) Negative (NEGATIVE) 03/31/23 22:23 Influenza Type B (PCR) Negative (NEGATIVE) 03/31/23 22:23 RSV (PCR) Negative (NEGATIVE) 03/31/23 22:23 - Plan (1) Left lower lobe pneumonia Status: Acute Qualifiers: Pneumonia type: due to unspecified organism Qualified Code(s): J18.9 - Pneumonia, unspecified organism Plan: SUPPLEMENTAL OXYGEN, NORMAL SALINE WITH 20MEQ KCL AT 75 ML/HR, FORTAZ 1G IV Q8H, SOLU-MEDROL 40MG IV Q12H, TUSSIONEX 2.5ML Q12H PRN, TESSALON PERLES 100MG PO Q8H, PROBIOTICS, AND HER HOME MEDICATIONS WERE RESUMED. HOME MEDS INCLUDE NORVASC, LIPITOR, COREG, PLAVIX, COZAAR, AND OXYBUTYNIN. (2) Hypertension Status: Chronic Qualifiers: Hypertension type: primary hypertension Qualified Code(s): I10 - Essential (primary) hypertension (3) Anemia Status: Chronic Qualifiers: Anemia type: iron deficiency Iron deficiency anemia type: chronic blood loss Qualified Code(s): D50.0 - Iron deficiency anemia secondary to blood loss (chronic) (4) Hyperlipidemia Status: Chronic Qualifiers: Hyperlipidemia type: mixed hyperlipidemia Qualified Code(s): E78.2 - Mixed hyperlipidemia
[2023-04-02] MEDS ORDERED: MILK OF MAGNESIA PO PRN (18:42)
[2023-04-02] MEDS ORDERED: TYLENOL 325 MG TAB PO PRN (18:42)
[2023-04-02] MEDS: LIPITOR TAB 10 MG PO SCH (20:01)
[2023-04-02] MEDS: COLACE CAP 100 MG PO PRN (20:01)
[2023-04-02] MEDS ORDERED: MAALOX or MYLANTA PO PRN (23:50)
[2023-04-02] MEDS ORDERED: DUONEB 0.5 MG/3 MG (3 mL) NEB ONE (23:52)
[2023-04-03] MEDS: DUONEB 0.5 MG/3 MG (3 mL) NEB SCH ×4 (00:10→17:09)
[2023-04-03] MEDS: TESSALON PERLES PO SCH ×3 (02:24→18:03)
[2023-04-03] MEDS: MEMANTINE 14 MG PO SCH (02:56)
[2023-04-03] MEDS: FORTAZ or TAZICEF VIAL INJ 1 G in NS 100 ML IV 100 ML IV SCH ×3 (05:01→21:35)
[2023-04-03 06:03] LABS: BASOPHILS % (AUTO) 0 % (0.2-1.0); LYMPHOCYTES # (AUTO) 0.9 X10^3/uL (1.3-2.9); LYMPHOCYTES % (AUTO) 8.2 % (21.0-51.0); MEAN CORPUSCULAR HEMOGLOBIN 20.2 pg (27.0-34.0); MEAN CORPUSCULAR HGB CONC 31.6 g/dL (33.0-35.0); MEAN CORPUSCULAR VOLUME 63.9 fL (80.0-100.0); MEAN PLATELET VOLUME 9.6 fL (7.4-11.0); MONOCYTES # (AUTO) 0.5 x10^3/uL (0.3-0.8); MONOCYTES % (AUTO) 4.3 % (0.0-13.0); NEUTROPHILS # (AUTO) 9.8 x10^3/uL (2.2-4.8); NEUTROPHILS % (AUTO) 87.5 % (42.0-75.0); PLATELET COUNT 197 X10^3/uL (150.0-450.0); RED BLOOD COUNT 3.44 X10^6/uL (3.5-5.4); RED CELL DISTRIBUTION WIDTH 14.9 % (11.6-16.5); WHITE BLOOD COUNT 11.2 X10^3/uL (3.6-10.0)
[2023-04-03 06:07] LABS: HEMOGLOBIN 6.9 g/dL (12.0-16.0)
[2023-04-03] MEDS: NS + KCL 20 MEQ/L 1,000 ML IV SCH ×2 (06:14→20:06)
[2023-04-03 06:18] LABS: ALANINE AMINOTRANSFERASE 49 Units/L (12-78); ALBUMIN 2.5 g/dL (3.4-5.0); ALKALINE PHOSPHATASE 80 Units/L (46-116); ASPARTATE AMINO TRANSFERASE 35 Units/L (15-37); BLOOD UREA NITROGEN 17 mg/dL (7-18); CALCIUM 7.7 mg/dL (8.5-10.1); CARBON DIOXIDE 25.4 mmol/L (21-32); CHLORIDE 112 mmol/L (98-107); COR CA(FOR HYPOALB) 8.9 mg/dL (8.5-10.1); COR NA(FOR HYPERGLY) 147 mmol/L (136-145); CREATININE 0.71 mg/dL (0.55-1.02); GLUCOSE 130 mg/dL (65-99); MAGNESIUM 2.5 mg/dL (2.0-2.9); POTASSIUM 4.1 mmol/L (3.5-5.1); SODIUM 146 mmol/L (136-145); TOTAL PROTEIN 5.2 g/dL (6.4-8.2); eGFR NON BLACK RACES > 60 (>60)
[2023-04-03 06:31] LABS: HYPOCHROMASIA 2+; PLATELET MORPHOLOGY COMMENT NORMAL (NORMAL); POIKILOCYTOSIS 1+
[2023-04-03 06:32] LABS: BURR CELLS SLIGHT; MICROCYTOSIS 2+; OVALOCYTES 1+; SCHISTOCYTES SLIGHT; TARGET CELLS 1+
[2023-04-03] MEDS: SOLU-Medrol 40 MG VIAL IVP SCH ×2 (09:11→20:08)
[2023-04-03] MEDS: VSL#3 PO SCH (09:11)
[2023-04-03] MEDS: COREG TAB 6.25 MG PO SCH ×2 (09:12→20:08)
[2023-04-03] MEDS: PLAVIX PO SCH (09:12)
[2023-04-03] MEDS: NAMENDA TAB 10 MG PO SCH (09:12)
[2023-04-03] MEDS: NORVASC TAB 5 MG PO SCH ×2 (09:12→20:08)
[2023-04-03] MEDS: OXYBUTYNIN CHLORIDE ER PO SCH (09:12)
[2023-04-03] MEDS: COLACE CAP 100 MG PO PRN (09:13)
[2023-04-03] MEDS: COZAAR PO SCH (09:13)
[2023-04-03] MEDS ORDERED: TYLENOL 325 MG TAB PO ONE (09:27)
[2023-04-03] MEDS: MILK OF MAGNESIA PO SCH ×2 (10:30→22:01)
[2023-04-03] MEDS: COLACE CAP 100 MG PO SCH ×2 (11:10→22:01)
[2023-04-03] MEDS ORDERED: NS 250 ML IV 250 ML IV ONE ×2 (12:55→16:38)
[2023-04-03] MEDS ORDERED: BENADRYL CAP/TAB 25 MG PO ONE (12:55)
[2023-04-03] MEDS ORDERED: BENADRYL INJ 50 MG VIAL ONE (13:01)
[2023-04-03] MEDS: BENADRYL INJ 50 MG VIAL IVP ONE ×2 (13:04→13:06)
[2023-04-03] MEDS: TUSSIONEX PENNKINETIC SUSP PO PRN (16:41)
--- NOTE | 2023-04-03 18:38 | PCM.PROG ---
Progress Note - Progress Note for Day of Date of Exam: 04/03/23 - Subjective Subjective: IS CURRENTLY INPATIENT STATUS FOR TREATMENT OF LEFT LOWER LOBE PNEUMONIA, ANEMIA, GENERALIZED WEAKNESS, AND HTN. HER PMH INCLUDES ARTHRITIS, DYSLIPDEMIA, HTN, THALASSEMIA B MINOR, CHOLECYSTECTOMY, HYSTERECTOMY, AND ORTHO SURGERY. TODAY, SHE IS ALERT AND ORIENTED, SITTING UP IN BED ON MORNING ROUNDS. SHE CONTINUES TO COMPLAIN OF A COUGH AND SHORTNESS OF BREATH. SHE DENIES SIGNIFICANT IMPROVEMENT IN SYMPTOMS SINCE ADMISSION. SHE IS CURRENTLY UTILIZING OXYGEN VIA NASAL CANNULA AT 2 LPM. SATURATIONS HAVE REMAINED IN THE 90s THROUGHOUT THE NIGHT. ON EXAMIANTION, HEART IS REGULAR IN RATE AND RHYTHM. BILATERAL LUNGS ARE NOTED WITH RHONCHI THROUGHOUT. ABDOMEN IS ROUND, SOFT, AND NON-TENDER WITH NORMAL BOWEL SOUNDS NOTED IN ALL QUADRANTS. GOOD RANGE OF MOTION NOTED TO UPPER AND LOWER EXTREMITIES WITH NO EDEMA NOTED. HER VITALS THIS MORNING ARE: 98.0-82-20-95%-131/65. LABS WERE OBTAINED. WBC 9.0, RBC 3.77, HGB 7.9, HCT 24.2, PLT COUNT 179, SODIUM 145, POTASSIUM 4.1, CHLORIDE 111, BUN 14, CREATININE 0.86, GLUCOSE 190, CALCIUM 8.1, MAGNESIUM 1.9, AST 36, ALT 38, ALK PHOS 92, CRP 197.20, TOTAL PROTEIN 5.9, ALBUMIN 2.9. PERTUSSIS PCR IS PENDING. COVID, INFLUENZA, AND RSV WERE NEGATIVE. BLOOD CULTURES ARE PENDING. CHEST XRAY WAS REPEATED THIS MORNING AND REVEALED: No significant change compared to prior radiograph. Periorbital thickening with patchy left base opacities may represent chronic bronchitis with atelectasis or pneumonia. Blunted left costophrenic sulcus can be seen with small pleural effusion or pleuro-parynchemal scarring. SHE IS CURRENTLY RECEIVING NORMAL SALINE WITH 20MEQ KCL AT 75 ML/HR, FORTAZ 1G IV Q8H, SOLU-MEDROL 40MG IV Q12H, TUSSIONEX 2.5ML Q12H PRN, TESSALON PERLES 100MG PO Q8H, PROBIOTICS, AND HER HOME MEDICATIONS WERE RESUMED. HOME MEDS INCLUDE NORVASC, LIPITOR, COREG, PLAVIX, COZAAR, AND OXYBUTYNIN. SHE DID REQUIRE A DOSE OF TUSSIONEX EARLY THIS MORNING FOR COUGH. WE WILL CONTINUE HER CURRENT PLAN OF CARE TODAY. OTHERWISE, WE PLAN TO FOLLOW UP WITH AM LABS AND CHEST XRAY AND CONTINUE TO MONITOR. TIME SPENT ON CLINICAL ASSESSMENT, REVIEWING LABS AND IMAGING, DECISION MAKING, AND DOCUMENTATION GRATER THAN 45 MINUTES. - Past Medical Family Social History Past Med/Fam/Surg Hx: No changes since H&P Allergies: Allergies No Known Drug Allergies Allergy (Verified 03/31/23 22:42) - Review of Systems ROS: No change since H&P - Vital Signs and I&O's Vital Signs: Vital Signs Temperature 98.1 F Temperature 98.3 F Pulse Rate 74 Pulse Rate 72 Respiratory Rate 19 Respiratory Rate 16 Respiratory Rate 20 Blood Pressure 146/67 Blood Pressure 132/63 O2 Sat by Pulse Oximetry 94 O2 Sat by Pulse Oximetry 90 Intake and Output: Intake & Output 04/01/23 04/02/23 04/03/23 04/04/23 11:59 11:59 11:59 11:59 Intake Total 160 / 160 2278 / 2278 3309 / 3309 2016 Balance 160 / 160 2278 / 2278 3309 / 3309 2016 - Physical Exam Oriented: Normal Eyes: Normal Ear: Normal Nose: Normal Throat: Normal Respiratory: Rhonchi Cardiovascular: Normal : Normal Auscultation: Bowel Sounds: Normal Palpation: Normal Tenderness: Normal Skin: Normal Musculoskeletal: Left, Hip, Tender Psychiatric: Normal Mood Description: Calm Affect: Normal Speech Pattern: Clear, Appropriate - Laboratory and Diagnostics Result Diagrams: 04/03/23 05:28 04/03/23 05:28 Labs: 03/31/23 22:43 Blood Blood Culture - Preliminary 03/31/23 22:18 Blood Blood Culture - Preliminary Laboratory WBC 11.2 X10^3/uL (3.6-10.0) H 04/03/23 05:28 RBC 3.44 X10^6/uL (3.5-5.4) L 04/03/23 05:28 Hgb 6.9 g/dL (12.0-16.0) L* 04/03/23 05:28 Hct 22.0 % (36.0-47.0) L 04/03/23 05:28 MCV 63.9 fL (80.0-100.0) L 04/03/23 05:28 MCH 20.2 pg (27.0-34.0) L 04/03/23 05:28 MCHC 31.6 g/dL (33.0-35.0) L 04/03/23 05:28 RDW 14.9 % (11.6-16.5) 04/03/23 05:28 Plt Count 197 X10^3/uL (150.0-450.0) 04/03/23 05:28 Plt Count Comment Adequate (ADEQUATE) 04/03/23 05:28 MPV 9.6 fL (7.4-11.0) 04/03/23 05:28 Neut % (Auto) 87.5 % (42.0-75.0) H 04/03/23 05:28 Lymph % (Auto) 8.2 % (21.0-51.0) L 04/03/23 05:28 [place] % (Auto) 4.3 % (0.0-13.0) 04/03/23 05:28 Eos % (Auto) 0.0 % (0.9-2.9) L 04/03/23 05:28 Baso % (Auto) 0 % (0.2-1.0) L 04/03/23 05:28 Neut # (Auto) 9.8 x10^3/uL (2.2-4.8) H 04/03/23 05:28 Lymph # (Auto) 0.9 X10^3/uL (1.3-2.9) L 04/03/23 05:28 [place] # (Auto) 0.5 x10^3/uL (0.3-0.8) 04/03/23 05:28 Eos # (Auto) 0.0 x10^3/uL (0.0-0.2) 04/03/23 05:28 Baso # (Auto) 0.0 X10^3/uL (0.0-0.1) 04/03/23 05:28 Absolute Nucleated RBC 0.1 /100WBC 04/03/23 05:28 Total Counted 100 04/02/23 04:41 Neutrophils % (Manual) 88 % (39-76) H 04/02/23 04:41 Band Neutrophils % 3 % (0-10) 04/02/23 04:41 Lymphocytes % (Manual) 8 % (13-43) L 04/02/23 04:41 Monocytes % (Manual) 1 % (4-9) L 04/02/23 04:41 Eosinophils % (Manual) 1 % (0-6) 03/31/23 22:18 Giant Platelets Few 04/02/23 04:41 Plt Morphology Comment Normal (NORMAL) 04/03/23 05:28 RBC Morphology Abnormal (NORMAL) A 04/03/23 05:28 Hypochromasia 2+ A 04/03/23 05:28 Poikilocytosis 1+ A 04/03/23 05:28 Microcytosis 2+ A 04/03/23 05:28 Target Cells 1+ A 04/03/23 05:28 Tear Drop Cells Slight A 04/01/23 04:26 Ovalocytes 1+ A 04/03/23 05:28 Randall Cells Slight A 04/03/23 05:28 Acanthocytes (Spur) Slight 04/02/23 04:41 Schistocytes Slight A 04/03/23 05:28 PT 14.0 SECONDS (11.8-14.3) 03/31/23 22:18 INR Target Range - 03/31/23 22:18 INR 1.10 (0.8-1.3) 03/31/23 22:18 APTT 33.5 SECONDS (22.9-36.5) 03/31/23 22:18 PTT Comment - 03/31/23 22:18 D-Dimer 3.04 ug/ml (0.0-0.57) H 03/31/23 22:18 Sodium 146 mmol/L (136-145) H 04/03/23 05:28 Corrected Sodium 147 mmol/L (136-145) H 04/03/23 05:28 Potassium 4.1 mmol/L (3.5-5.1) 04/03/23 05:28 Chloride 112 mmol/L (98-107) H 04/03/23 05:28 Carbon Dioxide 25.4 mmol/L (21-32) 04/03/23 05:28 BUN 17 mg/dL (7-18) 04/03/23 05:28 Creatinine 0.71 mg/dL (0.55-1.02) 04/03/23 05:28 Est GFR (MDRD) Af Amer > 60 (>60) 04/03/23 05:28 Est GFR (MDRD) Non-Af > 60 (>60) 04/03/23 05:28 Glucose 130 mg/dL (65-99) H 04/03/23 05:28 Lactic Acid 1.3 mmol/L (0.4-2.0) 03/31/23 22:18 Calcium 7.7 mg/dL (8.5-10.1) L 04/03/23 05:28 Corrected Calcium 8.9 mg/dL (8.5-10.1) 04/03/23 05:28 Magnesium 2.5 mg/dL (2.0-2.9) 04/03/23 05:28 Total Bilirubin 0.30 mg/dL (0.2-1.0) 04/03/23 05:28 AST 35 Units/L (15-37) 04/03/23 05:28 ALT 49 Units/L (12-78) 04/03/23 05:28 Alkaline Phosphatase 80 Units/L (46-116) 04/03/23 05:28 Creatine Kinase 171 Units/L (26-192) 04/01/23 00:30 Troponin I High Sens 18.0 ng/L (4.0-60.0) 04/01/23 00:30 C-Reactive Protein 77.70 mg/L (0-3.0) H 04/03/23 05:28 Total Protein 5.2 g/dL (6.4-8.2) L 04/03/23 05:28 Albumin 2.5 g/dL (3.4-5.0) L 04/03/23 05:28 Globulin 2.7 g/dL (2.5-4.5) 04/03/23 05:28 Albumin/Globulin Ratio 0.9 Ratio (1.1-2.1) L 04/03/23 05:28 Specimen Type Catherized urine 04/01/23 00:20 Urine Color Yellow (YELLOW) 04/01/23 00:20 Urine Appearance Clear (CLEAR) 04/01/23 00:20 Urine pH 8.0 (5.0 - 8.0) 04/01/23 00:20 Ur Specific [place] 1.010 (1.000-1.030) 04/01/23 00:20 Urine Protein 2+ (NEGATIVE) 04/01/23 00:20 Urine Glucose (UA) Negative (NEGATIVE) 04/01/23 00:20 Urine Ketones 2+ (NEGATIVE) 04/01/23 00:20 Urine Blood 1+ (NEGATIVE) 04/01/23 00:20 Urine Nitrite Negative (NEGATIVE) 04/01/23 00:20 Urine Bilirubin Negative (NEGATIVE) 04/01/23 00:20 Urine Urobilinogen Normal (NORMAL) 04/01/23 00:20 Ur Leukocyte Esterase Negative (NEGATIVE) 04/01/23 00:20 Urine RBC 0-2 /HPF (0-3) 04/01/23 00:20 Urine WBC 0-2 /HPF (0-5) 04/01/23 00:20 Ur Squamous Epith Cells Rare /HPF (NEGATIVE) 04/01/23 00:20 Urine Bacteria Negative /HPF (NEGATIVE) 04/01/23 00:20 Ur Culture Indicated? No/not indicated 04/01/23 00:20 SARS-CoV-2 (PCR) Negative (NEGATIVE) 03/31/23 22:23 Influenza Type A (PCR) Negative (NEGATIVE) 03/31/23 22:23 Influenza Type B (PCR) Negative (NEGATIVE) 03/31/23 22:23 RSV (PCR) Negative (NEGATIVE) 03/31/23 22:23 Blood Type A POSITIVE 04/03/23 09:50 Antibody Screen Negative 04/03/23 09:50 Crossmatch See Detail 04/03/23 09:50 - Plan (1) Left lower lobe pneumonia Status: Acute Qualifiers: Pneumonia type: due to unspecified organism Qualified Code(s): J18.9 - Pneumonia, unspecified organism Plan: SUPPLEMENTAL OXYGEN, NORMAL SALINE WITH 20MEQ KCL AT 75 ML/HR, FORTAZ 1G IV Q8H, SOLU-MEDROL 40MG IV Q12H, TUSSIONEX 2.5ML Q12H PRN, TESSALON PERLES 100MG PO Q8H, PROBIOTICS, AND HER HOME MEDICATIONS WERE RESUMED. HOME MEDS INCLUDE NORVASC, LIPITOR, COREG, PLAVIX, COZAAR, AND OXYBUTYNIN. 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
[2023-04-03] MEDS: LIPITOR TAB 10 MG PO SCH (20:08)
[2023-04-03 21:16] LABS: HEMATOCRIT 31.6 % (36.0-47.0); HEMOGLOBIN 10.2 g/dL (12.0-16.0)
[2023-04-04 00:17] VITALS: RESP 20
[2023-04-04] MEDS: TESSALON PERLES PO SCH (02:45)
[2023-04-04] MEDS: FORTAZ or TAZICEF VIAL INJ 1 G in NS 100 ML IV 100 ML IV SCH (05:30)
[2023-04-04] MEDS: NS + KCL 20 MEQ/L 1,000 ML IV SCH (05:30)
[2023-04-04] MEDS: DUONEB 0.5 MG/3 MG (3 mL) NEB SCH ×2 (06:00)
[2023-04-04 06:14] LABS: IMMUNOGLOBULIN M 49 mg/dL (35-263)
[2023-04-04 06:34] LABS: BASOPHILS % (AUTO) 0.1 % (0.2-1.0); EOSINOPHILS % (AUTO) 0.1 % (0.9-2.9); HEMATOCRIT 35.1 % (36.0-47.0); HEMOGLOBIN 11.4 g/dL (12.0-16.0); LYMPHOCYTES # (AUTO) 1.9 X10^3/uL (1.3-2.9); LYMPHOCYTES % (AUTO) 12.5 % (21.0-51.0); MEAN CORPUSCULAR HEMOGLOBIN 22.6 pg (27.0-34.0); MEAN CORPUSCULAR HGB CONC 32.5 g/dL (33.0-35.0); MEAN CORPUSCULAR VOLUME 69.5 fL (80.0-100.0); MEAN PLATELET VOLUME 9.7 fL (7.4-11.0); MONOCYTES # (AUTO) 0.8 x10^3/uL (0.3-0.8); MONOCYTES % (AUTO) 5.1 % (0.0-13.0); NEUTROPHILS # (AUTO) 12.5 x10^3/uL (2.2-4.8); NEUTROPHILS % (AUTO) 82.2 % (42.0-75.0); PLATELET COUNT 239 X10^3/uL (150.0-450.0); RED BLOOD COUNT 5.05 X10^6/uL (3.5-5.4); RED CELL DISTRIBUTION WIDTH 20.6 % (11.6-16.5); WHITE BLOOD COUNT 15.2 X10^3/uL (3.6-10.0)
[2023-04-04 06:53] LABS: ALANINE AMINOTRANSFERASE 55 Units/L (12-78); ALBUMIN 3.1 g/dL (3.4-5.0); ALKALINE PHOSPHATASE 95 Units/L (46-116); ASPARTATE AMINO TRANSFERASE 29 Units/L (15-37); BLOOD UREA NITROGEN 12 mg/dL (7-18); CALCIUM 8.2 mg/dL (8.5-10.1); CARBON DIOXIDE 29.7 mmol/L (21-32); CHLORIDE 108 mmol/L (98-107); COR CA(FOR HYPOALB) 8.9 mg/dL (8.5-10.1); CREATININE 0.68 mg/dL (0.55-1.02); GLUCOSE 103 mg/dL (65-99); POTASSIUM 3.9 mmol/L (3.5-5.1); SODIUM 145 mmol/L (136-145); TOTAL PROTEIN 6.1 g/dL (6.4-8.2); eGFR NON BLACK RACES > 60 (>60)
[2023-04-04 07:40] LABS: BAND NEUTROPHILS % 1 % (0-10); PLATELET MORPHOLOGY COMMENT NORMAL (NORMAL)
[2023-04-04 07:41] LABS: ANISOCYTOSIS 1+; HYPOCHROMASIA 1+; MICROCYTOSIS 1+; OVALOCYTES 1+; TARGET CELLS 2+
[2023-04-04] MEDS: COREG TAB 6.25 MG PO SCH (09:09)
[2023-04-04] MEDS: COZAAR PO SCH (09:09)
[2023-04-04] MEDS: PLAVIX PO SCH (09:10)
[2023-04-04] MEDS: OXYBUTYNIN CHLORIDE ER PO SCH (09:10)
[2023-04-04] MEDS: NAMENDA TAB 10 MG PO SCH (09:10)
[2023-04-04] MEDS: VSL#3 PO SCH (09:10)
[2023-04-04] MEDS: NORVASC TAB 5 MG PO SCH (09:10)
[2023-04-04] MEDS: SOLU-Medrol 40 MG VIAL IVP SCH (09:10)
[2023-04-04 09:46] VITALS: BP 178/78; PULSE 74; TEMP 97.7; O2SAT 91
--- NOTE | 2023-04-04 10:06 | RAD ---
Frontal chest single viewIndication: Acute bronchitisCOMPARISONJuly 2022FINDINGSThere is cardiomegaly without pneumothorax or effusion. There is no dense consolidation.IMPRESSIONProminent heart size, trace pleural thickening on the left, without new acute chest process or change from the prior.Electronically signed by: MARC AVILES (Apr 04, 2023 10:05:32)
--- NOTE | 2023-04-04 10:08 | RAD ---
HISTORYabd pain.STUDYACUTE ABDOMEN SERIESCOMPARISONNoneFINDINGSLungs are clear. No pneumonia or pleural effusion. Cardiomegaly is present. Vascular calcifications are present compatible with atherosclerosis.Gas is present in nondilated bowel. No bowel obstruction or free air. Moderate heavy fecal burden in the colon suggest constipation. Mostly in the left colon and sigmoid segment.Calcification in the left kidney measures about 6 mm. Probable calcifications in the right kidney measures 3 mm and 4 mm.Levoconvex scoliosis measures about 21 degrees apex at L2. Degenerative changes are present in the spine.Surgical clips are present in the right upper abdomen, probably from a cholecystectomy.IMPRESSION1. Findings suggesting constipation2. Bilateral renal calculi3. Cardiomegaly4. ScoliosisElectronically signed by: Mateusz Pham (Apr 04, 2023 10:07:08)
--- NOTE | 2023-04-04 15:53 | RAD ---
CHEST, 1 VIEWHISTORY: ACUTE BRONCHITIS, SOBStudy: AP view of the chest.Comparison:NoneFindings:The cardiomediastinal silhouette is normal. No focal consolidations, pleural effusions or pneumothorax. Osseous structures demonstrate no acute abnormality. Bilateral hyperexpansion and interstitial prominence.IMPRESSION:1. No acute cardiopulmonary process.2. Findings of COPD.Electronically signed by: USMAN BONDS (Apr 04, 2023 15:52:01)
== END 2023-04-04 10:30 | disposition home or self-care (01) | DRG 194 ==
LOC: ICU 22:01 → ER 22:01 → OBSVTOIN 04-01 02:20 → ICU 04-01 02:43 → MED/SURG 04-01 19:51
PROVIDERS: ADMIT Internal Medicine; ATTEND Internal Medicine
DX: R53.1 Weakness; Z86.73 Personal history of transient ischemic attack (TIA), and cerebral infarction without residual deficits; Z79.01 Long term (current) use of anticoagulants; E78.2 Mixed hyperlipidemia; J90 Pleural effusion, not elsewhere classified; R06.02 Shortness of breath; D50.0 Iron deficiency anemia secondary to blood loss (chronic); I25.10 Atherosclerotic heart disease of native coronary artery without angina pectoris; I10 Essential (primary) hypertension; J18.8 Other pneumonia, unspecified organism; K21.9 Gastro-esophageal reflux disease without esophagitis; R79.82 Elevated C-reactive protein (CRP); Z20.822 Contact with and (suspected) exposure to COVID-19; R26.89 Other abnormalities of gait and mobility; W18.39XA Other fall on same level, initial encounter

== ENCOUNTER 2023-05-19 08:33 | Observation (INO) ==
--- NOTE | 2023-05-19 08:57 | DR.URINEF ---
HPI Time Seen Time Seen by Provider: 05/19/23 08:47 PCP Primary Care Physician: ISRAEL Rangel HPI Comment HPI Comment: pATIENT IS 82YR OLD FEMALE IN ER WITH WEAKNESS, CONFISION AND INTERMITTENT NAUSEA AND VOMITING. KIDNEY STENT AFTER LITHOSTRIPSY WAS REMOVED 6 DAYS AGO. PCP DIAGNOSED PATIENT WITH UTI 4 DAYS AGO AND IS ON TREATMENT WITH CIPRO AND ROCEHIN. Complaint Chief Complaint:: Pt recently had lithotripsy with stent placement with Dr. Perea. Stent was removed on Friday05/13/23. Pt was feeling better until 05/15/23 when she developed weakness, confusion, and intermittent nausea with a few episodes of vomiting. Pt was seen by PCP and diagnosed with UTI on but symptoms have worsened since then despite treatment. Self Treatment fo Chief Complaint: Pt has been taking Cipro 250mg po BID x 4 days and Rocephin 1gm IM daily x 4 days. Pt also received NS 500ml bolus IV yesterday with PCP. COVID-19 Coronavirus risk:travel/contact w/high risk person: No Has patient experienced Coronavirus symptoms: No Reviewed Nurses Notes Reviewed: Yes Source History Provided: Patient and Family Member Mode of Arrival Mode of Arrival: Ambulatory Timing Onset of Chief Complaint: 05/15/23 PMH PMH Past Medical History: Yes Past Medical History: Arthritis, Dyslipidemia, Hypertension and Kidney Stones Past Medical History Comment: TIA Past Surgical History: Yes Surgical History: Cholecystectomy, Ortho Surgery and Lithotripsy Past Surgical History Comment: Left ankle surgery Family History History of Family Medical Conditions: Yes Family Medical History: [place], Coronary Artery Disease, Heart Failure, Sudden Cardiac and Hypertension Social History Does patient currently use any type of tobacco product: No Have you used tobacco products in the last 12 months: No Type of Tobacco Use: None Does any household member use tobacco: No Alcohol Use: None Do you use any recreational Drugs:: No Lives With: Family Lives Where: Home Travel Risk Coronavirus risk:travel/contact w/high risk person: No Has patient experienced Coronavirus symptoms: No Infectious screening In the last 2 months have you had wt loss of >10#?: NO Have you had fever, night sweats or hemotysis?: No Have you traveled outside the country in the last 6 months?: No Isolation: Standard ROS Review of Systems Constitutional: Weakness and Fatigue Eyes: No Symptoms Reported ENTM: No Symptoms Reported Respiratoy: No Symptoms Reported Cardiovascular: No Symptoms Reported Gastrointestinal/Abdominal: Nausea and Vomiting Genitourinary: No Symptoms Reported Neurological: No Symptoms Reported Musculoskeletal: No Symptoms Reported Integumentary: No Symptoms Reported Hematologic/Lymphatic: No Symptoms Reported Endocrine: No Symptoms Reported Psychiatric: No Symptoms Reported All Other Systems: Reviewed and Negative PE Vital Signs Vitals: Vital Signs Temperature 99.4 F Pulse Rate 69 Pulse Rate 70 Pulse Rate 71 Pulse Rate 73 Pulse Rate 65 Pulse Rate 65 Pulse Rate 66 Pulse Rate 66 Pulse Rate 73 Pulse Rate 69 Respiratory Rate 20 Blood Pressure 168/72 Blood Pressure 168/72 Blood Pressure 111/81 Blood Pressure 111/81 Blood Pressure 111/61 Blood Pressure 111/61 Blood Pressure 172/83 Blood Pressure 150/99 Blood Pressure 139/64 Blood Pressure 139/64 Blood Pressure 158/66 Blood Pressure 158/66 Blood Pressure 120/74 O2 Sat by Pulse Oximetry 90 O2 Sat by Pulse Oximetry 91 O2 Sat by Pulse Oximetry 94 O2 Sat by Pulse Oximetry 92 O2 Sat by Pulse Oximetry 93 O2 Sat by Pulse Oximetry 95 O2 Sat by Pulse Oximetry 96 O2 Sat by Pulse Oximetry 96 O2 Sat by Pulse Oximetry 96 O2 Sat by Pulse Oximetry 88 O2 Sat by Pulse Oximetry 93 General Limitations: No Limitations General Appearance: Alert and In No Apparent Distress Head Head Exam: Normal Inspection Eyes Eye exam: Normal Appearance ENT ENT Exam: Normal Exam Neck Neck Exam: Normal Inspection Chest Chest Inspection: Normal Inspection Respiratory Respiratory Exam: Normal Lung Sounds Bilat Cardiovascular Cardiovascular Exam: Regular Rate Abdominal Exam Abdominal Exam: Normal Inspection Rectal Rectal Exam: Deferred Genitourinary External Exam: Female: Normal External Exam and Deferred Extremities Extremities Exam: Normal Inspection Back Back Exam: Normal Inspection Neurologic Neurological Exam: Alert Skin Skin Exam: Intact MDM Differential Diagnosis Differential Diagnosis: Pyelonephritis and UTI COURSE Treatment Treatment: SEE ORDERS DONE WHILE PATIENT WAS IN ER. Education/Counseling Education/Counseling: Patient Educated On: Diagnosis ROR Labs Reviewed 05/19/23 09:16 05/19/23 09:06 Laboratory: WBC 7.5 X10^3/uL (3.6-10.0) 05/19/23 09:16 RBC 3.75 X10^6/uL (3.5-5.4) 05/19/23 09:16 Hgb 8.1 g/dL (12.0-16.0) L 05/19/23 09:16 Hct 25.0 % (36.0-47.0) L 05/19/23 09:16 MCV 66.7 fL (80.0-100.0) L 05/19/23 09:16 MCH 21.7 pg (27.0-34.0) L 05/19/23 09:16 MCHC 32.5 g/dL (33.0-35.0) L 05/19/23 09:16 RDW 19.4 % (11.6-16.5) H 05/19/23 09:16 Plt Count 150 X10^3/uL (150.0-450.0) 05/19/23 09:16 Plt Count Comment Adequate (ADEQUATE) 05/19/23 09:16 MPV 10.5 fL (7.4-11.0) 05/19/23 09:16 Neut % (Auto) 67.9 % (42.0-75.0) 05/19/23 09:16 Lymph % (Auto) 16.2 % (21.0-51.0) L 05/19/23 09:16 [place] % (Auto) 13.6 % (0.0-13.0) H 05/19/23 09:16 Eos % (Auto) 1.8 % (0.9-2.9) 05/19/23 09:16 Baso % (Auto) 0.5 % (0.2-1.0) 05/19/23 09:16 Neut # (Auto) 5.1 x10^3/uL (2.2-4.8) H 05/19/23 09:16 Lymph # (Auto) 1.2 X10^3/uL (1.3-2.9) L 05/19/23 09:16 [place] # (Auto) 1.0 x10^3/uL (0.3-0.8) H 05/19/23 09:16 Eos # (Auto) 0.1 x10^3/uL (0.0-0.2) 05/19/23 09:16 Baso # (Auto) 0.0 X10^3/uL (0.0-0.1) 05/19/23 09:16 Absolute Nucleated RBC 0.1 /100WBC 05/19/23 09:16 Plt Morphology Comment Normal (NORMAL) 05/19/23 09:16 RBC Morphology Abnormal (NORMAL) A 05/19/23 09:16 Hypochromasia 1+ A 05/19/23 09:16 Anisocytosis Slight A 05/19/23 09:16 Microcytosis 1+ A 05/19/23 09:16 Ovalocytes 2+ A 05/19/23 09:16 Acanthocytes (Spur) Slight 05/19/23 09:16 Schistocytes Slight A 05/19/23 09:16 Sodium 140 mmol/L (136-145) 05/19/23 09:06 Corrected Sodium TNP 05/19/23 09:06 Potassium 3.7 mmol/L (3.5-5.1) 05/19/23 09:06 Chloride 104 mmol/L (98-107) 05/19/23 09:06 Carbon Dioxide 28.4 mmol/L (21-32) 05/19/23 09:06 BUN 16 mg/dL (7-18) 05/19/23 09:06 Creatinine 1.09 mg/dL (0.55-1.02) H 05/19/23 09:06 Est GFR (MDRD) Af Amer > 60 (>60) 05/19/23 09:06 Est GFR (MDRD) Non-Af 51 (>60) L 05/19/23 09:06 Glucose 105 mg/dL (65-99) H 05/19/23 09:06 Lactic Acid 1.2 mmol/L (0.4-2.0) 05/19/23 09:06 Calcium 8.1 mg/dL (8.5-10.1) L 05/19/23 09:06 Corrected Calcium 9.0 mg/dL (8.5-10.1) 05/19/23 09:06 Total Bilirubin 0.50 mg/dL (0.2-1.0) 05/19/23 09:06 AST 41 Units/L (15-37) H 05/19/23 09:06 ALT 40 Units/L (12-78) 05/19/23 09:06 Alkaline Phosphatase 128 Units/L (46-116) H 05/19/23 09:06 Creatine Kinase 155 Units/L (26-192) 05/19/23 09:06 Troponin I High Sens 10.2 ng/L (4.0-60.0) 05/19/23 09:06 Total Protein 6.0 g/dL (6.4-8.2) L 05/19/23 09:06 Albumin 2.9 g/dL (3.4-5.0) L 05/19/23 09:06 Globulin 3.1 g/dL (2.5-4.5) 05/19/23 09:06 Albumin/Globulin Ratio 0.9 Ratio (1.1-2.1) L 05/19/23 09:06 Specimen Type Catherized urine 05/19/23 08:58 Urine Color Yellow (YELLOW) 05/19/23 08:58 Urine Appearance Clear (CLEAR) 05/19/23 08:58 Urine pH 6.0 (5.0 - 8.0) 05/19/23 08:58 Ur Specific [place] 1.010 (1.000-1.030) 05/19/23 08:58 Urine Protein 1+ (NEGATIVE) 05/19/23 08:58 Urine Glucose (UA) Negative (NEGATIVE) 05/19/23 08:58 Urine Ketones Negative (NEGATIVE) 05/19/23 08:58 Urine Blood 1+ (NEGATIVE) 05/19/23 08:58 Urine Nitrite Negative (NEGATIVE) 05/19/23 08:58 Urine Bilirubin Negative (NEGATIVE) 05/19/23 08:58 Urine Urobilinogen Normal (NORMAL) 05/19/23 08:58 Ur Leukocyte Esterase 1+ (NEGATIVE) 05/19/23 08:58 Urine RBC 0-2 /HPF (0-3) 05/19/23 08:58 Urine WBC 0-2 /HPF (0-5) 05/19/23 08:58 Ur Squamous Epith Cells Rare /HPF (NEGATIVE) 05/19/23 08:58 Amorphous Sediment Trace /HPF (NEGATIVE) 05/19/23 08:58 Urine Bacteria Negative /HPF (NEGATIVE) 05/19/23 08:58 Ur Culture Indicated? No/not indicated 05/19/23 08:58 SARS-CoV-2 (PCR) Negative (NEGATIVE) 05/19/23 10:00 Influenza Type A (PCR) Negative (NEGATIVE) 05/19/23 10:00 Influenza Type B (PCR) Negative (NEGATIVE) 05/19/23 10:00 RSV (PCR) Negative (NEGATIVE) 05/19/23 10:00 Opioid Opioid Risk Tool Age ([place] box if 16-45): No History of Preadolescent Sexual Abuse: No Total: 0 Total Score Risk Category: Low Risk Copyright: Александр GOODRICH predicting aberrant behaviors Discharge Plan Diagnosis Discharge Problem: UTI (urinary tract infection), Generalized weakness, Altered mental status Discharge Plan Patient Disposition: ADMITTED INPATIENT Condition: Stable Orders to Discharge Patient Discharge Orders: Transfer (Routine); Ordered 05/19/23 Ordered By: VALERIA ESQUIVEL
[2023-05-19 09:31] LABS: BASOPHILS % (AUTO) 0.5 % (0.2-1.0); EOSINOPHILS # (AUTO) 0.1 x10^3/uL (0.0-0.2); EOSINOPHILS % (AUTO) 1.8 % (0.9-2.9); HEMOGLOBIN 8.1 g/dL (12.0-16.0); LYMPHOCYTES # (AUTO) 1.2 X10^3/uL (1.3-2.9); LYMPHOCYTES % (AUTO) 16.2 % (21.0-51.0); MEAN CORPUSCULAR HEMOGLOBIN 21.7 pg (27.0-34.0); MEAN CORPUSCULAR HGB CONC 32.5 g/dL (33.0-35.0); MEAN CORPUSCULAR VOLUME 66.7 fL (80.0-100.0); MEAN PLATELET VOLUME 10.5 fL (7.4-11.0); MONOCYTES % (AUTO) 13.6 % (0.0-13.0); NEUTROPHILS # (AUTO) 5.1 x10^3/uL (2.2-4.8); NEUTROPHILS % (AUTO) 67.9 % (42.0-75.0); PLATELET COUNT 150 X10^3/uL (150.0-450.0); RED BLOOD COUNT 3.75 X10^6/uL (3.5-5.4); RED CELL DISTRIBUTION WIDTH 19.4 % (11.6-16.5); WHITE BLOOD COUNT 7.5 X10^3/uL (3.6-10.0)
--- NOTE | 2023-05-19 09:35 | RAD ---
HISTORYWeaknessSTUDYChest AP [id number]/14/2023FINDINGSHear t is mildly enlarged. No congestive heart failure is noted. Valeria are normal. Lung keith are clear. No pleural effusions are identified. Bony thorax is unremarkable.IMPRESSIONMild cardiomegaly without congestive heart failureNo infiltratesElectronically signed by: SKYLER PRUITT (May 19, 2023 09:33:25)
[2023-05-19 09:39] LABS: BILIRUBIN,URINE NEGATIVE (NEGATIVE); BLOOD/HEMOGLOBIN,URINE 1+ (NEGATIVE); GLUCOSE, URINE NEGATIVE (NEGATIVE); KETONES,URINE NEGATIVE (NEGATIVE); LEUKOCYTE ESTERASE ,URINE 1+ (NEGATIVE); NITRITES,URINE NEGATIVE (NEGATIVE); PROTEIN,URINE 1+ (NEGATIVE); UROBILINOGEN,URINE NORMAL (NORMAL)
[2023-05-19 09:44] LABS: ALANINE AMINOTRANSFERASE 40 Units/L (12-78); ALBUMIN 2.9 g/dL (3.4-5.0); ALKALINE PHOSPHATASE 128 Units/L (46-116); ASPARTATE AMINO TRANSFERASE 41 Units/L (15-37); BLOOD UREA NITROGEN 16 mg/dL (7-18); CALCIUM 8.1 mg/dL (8.5-10.1); CARBON DIOXIDE 28.4 mmol/L (21-32); CREATINE KINASE 155 Units/L (26-192); CREATININE 1.09 mg/dL (0.55-1.02); GLUCOSE 105 mg/dL (65-99); eGFR NON BLACK RACES 51 (>60)
[2023-05-19 09:49] LABS: LACTIC ACID 1.2 mmol/L (0.4-2.0)
[2023-05-19 09:49] LABS: APPEARANCE,URINE CLEAR (CLEAR); COLOR,URINE YELLOW (YELLOW)
[2023-05-19 09:54] LABS: BACTERIA,URINE NEGATIVE /HPF (NEGATIVE); RBC,URINE 0-2 /HPF (0-3); SQUAMOUS EPITHELIAL CELL,UR RARE /HPF (NEGATIVE)
[2023-05-19 09:58] LABS: CHLORIDE 104 mmol/L (98-107); POTASSIUM 3.7 mmol/L (3.5-5.1); SODIUM 140 mmol/L (136-145)
[2023-05-19 09:59] LABS: ANISOCYTOSIS SLIGHT; HYPOCHROMASIA 1+; MICROCYTOSIS 1+; PLATELET MORPHOLOGY COMMENT NORMAL (NORMAL)
[2023-05-19 10:00] LABS: OVALOCYTES 2+; SCHISTOCYTES SLIGHT
--- NOTE | 2023-05-19 12:52 | CT ---
HISTORYConfusionSTUDYCT brain without contrastCOMPARISONJuly 2022TECHNIQUEMultiple axial images of the brain were obtained from the skull base to the vertex [without] administration of IV contrast.Dose reduction techniques including Automated Exposure Control (AEC) and adjustment of mA and kV were utlized.FINDINGS[No acute intraparenchymal hemorrhage or mass can be identified.] [No extra-axial fluid collections are seen.] [No alteration in the attenuation of the brain parenchyma can be identified to suggest acute or subacute ischemic change.] Extensive small vessel ischemic changes and chronic appearing right thalamic lacunar infarcts are noted. Age-appropriate atrophic changes are also seen. [The ventricular system is symmetric and nondilated.] [The extracranial structures are grossly unremarkable.]IMPRESSION[No acute intracranial process can be identified.]Electronically signed by: PANCHO TRUONG (May 19, 2023 12:50:24)
[2023-05-19] MEDS ORDERED: FORTAZ or TAZICEF VIAL INJ 1 G in NS 100 ML IV 100 ML IV ONE (13:02)
[2023-05-19] MEDS ORDERED: FORTAZ or TAZICEF VIAL INJ ONE (13:07)
[2023-05-19] MEDS ORDERED: NS 100 ML IV 100 ML ONE (13:07)
[2023-05-19] MEDS ORDERED: NS 1,000 ML IV 1,000 ML ONE (13:07)
[2023-05-19] MEDS ORDERED: NS 1,000 ML IV 1,000 ML IV ONE (13:16)
[2023-05-19] MEDS ORDERED: ZOFRAN TAB 4 MG PO PRN (13:55)
[2023-05-19] MEDS: FORTAZ or TAZICEF VIAL INJ 1 G in NS 100 ML IV 100 ML IV SCH ×3 (13:56→21:09)
[2023-05-19] MEDS ORDERED: COREG TAB 6.25 MG PO SCH (14:00)
[2023-05-19] MEDS: NORVASC TAB 5 MG PO SCH ×2 (14:58→20:26)
[2023-05-19] MEDS ORDERED: NORVASC TAB 5 MG ONE (14:58)
[2023-05-19 17:51] VITALS: BMI 24.9
[2023-05-19] MEDS: COREG TAB 6.25 MG PO SCH (20:25)
[2023-05-19] MEDS: RESTORIL CAP 15 MG PO PRN (20:25)
[2023-05-19] MEDS: PROTONIX TAB 40 MG PO SCH (20:25)
[2023-05-19] MEDS: LIPITOR TAB 10 MG PO SCH (20:25)
[2023-05-19] MEDS: COLACE CAP 100 MG PO SCH (20:25)
[2023-05-19] MEDS: MILK OF MAGNESIA PO SCH (20:26)
[2023-05-19] MEDS ORDERED: CONSULT PHARMACY - POTASSIUM & MAGNESIUM XX SCH (23:00)
[2023-05-19] MEDS ORDERED: K-DUR TAB 20 MEQ PO ONE (23:00)
[2023-05-20] MEDS: FORTAZ or TAZICEF VIAL INJ 1 G in NS 100 ML IV 100 ML IV SCH ×3 (05:02→21:08)
[2023-05-20 06:26] LABS: BASOPHILS % (AUTO) 0.6 % (0.2-1.0); EOSINOPHILS # (AUTO) 0.1 x10^3/uL (0.0-0.2); EOSINOPHILS % (AUTO) 2.4 % (0.9-2.9); HEMOGLOBIN 7.5 g/dL (12.0-16.0); LYMPHOCYTES # (AUTO) 1.2 X10^3/uL (1.3-2.9); LYMPHOCYTES % (AUTO) 21.7 % (21.0-51.0); MEAN CORPUSCULAR HEMOGLOBIN 21.5 pg (27.0-34.0); MEAN CORPUSCULAR HGB CONC 32.7 g/dL (33.0-35.0); MEAN CORPUSCULAR VOLUME 65.9 fL (80.0-100.0); MEAN PLATELET VOLUME 10.6 fL (7.4-11.0); MONOCYTES # (AUTO) 0.6 x10^3/uL (0.3-0.8); MONOCYTES % (AUTO) 11.2 % (0.0-13.0); NEUTROPHILS # (AUTO) 3.4 x10^3/uL (2.2-4.8); NEUTROPHILS % (AUTO) 64.1 % (42.0-75.0); PLATELET COUNT 132 X10^3/uL (150.0-450.0); RED BLOOD COUNT 3.48 X10^6/uL (3.5-5.4); WHITE BLOOD COUNT 5.3 X10^3/uL (3.6-10.0)
[2023-05-20 06:40] LABS: ALANINE AMINOTRANSFERASE 29 Units/L (12-78); ALBUMIN 2.5 g/dL (3.4-5.0); ALKALINE PHOSPHATASE 112 Units/L (46-116); ASPARTATE AMINO TRANSFERASE 27 Units/L (15-37); BLOOD UREA NITROGEN 9 mg/dL (7-18); CALCIUM 7.8 mg/dL (8.5-10.1); CARBON DIOXIDE 29.2 mmol/L (21-32); CHLORIDE 107 mmol/L (98-107); COR NA(FOR HYPERGLY) 145 mmol/L (136-145); CREATININE 0.88 mg/dL (0.55-1.02); GLUCOSE 125 mg/dL (65-99); MAGNESIUM 2.2 mg/dL (2.0-2.9); POTASSIUM 3.5 mmol/L (3.5-5.1); SODIUM 144 mmol/L (136-145); TOTAL PROTEIN 5.4 g/dL (6.4-8.2); eGFR NON BLACK RACES > 60 (>60)
[2023-05-20 07:00] LABS: ANISOCYTOSIS SLIGHT; HYPOCHROMASIA 2+; MICROCYTOSIS 1+; OVALOCYTES 1+; PLATELET MORPHOLOGY COMMENT NORMAL (NORMAL)
[2023-05-20] MEDS ORDERED: CONSULT PHARMACY - POTASSIUM & MAGNESIUM XX SCH (08:00)
[2023-05-20] MEDS: PLAVIX PO SCH (08:29)
[2023-05-20] MEDS: COREG TAB 6.25 MG PO SCH ×2 (08:29→20:19)
[2023-05-20] MEDS: PROTONIX TAB 40 MG PO SCH ×2 (08:30→20:19)
[2023-05-20] MEDS: FOLIC ACID TAB 1 MG PO SCH (08:30)
[2023-05-20] MEDS: ASPIRIN EC 81 MG PO SCH (08:30)
[2023-05-20] MEDS: NORVASC TAB 5 MG PO SCH ×2 (08:30→20:19)
[2023-05-20] MEDS: MEMANTINE 28 MG PO SCH ×2 (10:19→10:25)
--- NOTE | 2023-05-20 11:21 | DR.H&P ---
H&P - History & Physical for Day of: H&P Date: 05/19/23 - Chief Complaint Chief Complaint: WEAKNESS, AMS, INTERMITTENT NAUSEA AND VOMITING - History of Present Illness History of Present Illness: IS A 82 YEAR OLD PATIENT OF [place]. SHE PRESENTED TO THE ER WITH COMPLAINTS OF GENERALIZED WEAKNESS, ALTERED MENTAL STATUS, AND INTERMITTENT NAUSEA AND VOMITING. PATIENT RECENTLY HAD LITHOTRIPSY WITH STENT PLACEMENT BY IN [age], [place]. THE STENT WAS REMOVED ON 05/13/23. PATIENTS FAMILY REPORTS THAT PATIENT WAS FEELING BETTER UNTIL 05/15/23. THAT IS WHEN THE SYMPTOMS OF WEAKNESS, CONFUSION, AND INTERMITTENT NAUSEA AND VOMITING BEGAN. SHE WAS DIAGNOSED WITH A UTI ON 05/15 AND BEGAN OUTPATIENT TREATMENT WITH CIPRO 250MG BID. SHE ALSO RECEIVED ROCEPHIN 1G IM X 4 DAYS. ADDITIONALLY, SHE RECEIVED A NORMAL SALINE 500ML BOLUS AT HER PCP OFFICE YESTERDAY. HER PMH INCLUDES DEMENTIA, GERD, ARTHRITIS, DYSLIPDEMIA, HTN, THALASSEMIA B MINOR, CHOLECYSTECTOMY, HYSTERECTOMY, AND ORTHO SURGERY. ON ARRIVAL TO THE HOSPITAL, HER VITALS WERE: 99.4-69-20-93%-120/74. LABS WERE OBTAINED. WBC 7.5, RBC 3.75, HGB 8.1, HCT 25.0, PLT COUNT 150, SODIUM 140, POTASSIUM 3.7, CHLORIDE 104, BUN 16, CREATININE 1.09, GLUCOSE 105, CALCIUM 8.1, AST 41, ALT 40, ALK PHOS 128, CREATINE KINASE 155, TROPONIN 10.2, TOTAL PROTEIN 6.0, ALBUMIN 2.9. URINALYSIS WAS OBTAINED AND REVEALED: WBC 0-2, RBC 0-2, BACTERIA NEGATIVE, LEUKOCYTES NEGATIVE. A URINE CULTURE AND BLOOD CULTURES WERE SET UP. COVID, INFLUENZA, AND RSV NEGATIVE. A CHEST XRAY WAS OBTAINED AND REVEALED: Mild cardiomegaly without congestive heart failure. No infiltrates. A BRAIN CT WITHOUT CONTRAST WAS OBTAINED AND REVEALED: No acute intracranial process can be identified. WHILE IN THE ER, HER OXYGEN SATURATIONS DROPPED TO 86% ON ROOM AIR. SATURATIONS INCREASED TO 94% WHEN PLACED ON OXYGEN VIA NASAL CANNULA AT 94%. IN THE ER, SHE WAS GIVEN K-DUR 20MEQ PO X 1 DOSE AND FORTAZ 1G IV X 1 DOSE. SHE WAS ADMITTED TO THE HOSPITAL OBSERVATION STATUS FOR FURTHER EVALUATION AND TREATMENT OF URINARY TRACT INFECTION, FAILED OUTPATIENT TREATMENT, ANEMIA, GENERALIZED WEAKNESS, AND ALTERED MENTAL STATUS. SHE WAS STARTED ON FORTAZ 1G IV Q8H, MILK OF MAGNESIA 30MG HS, COLACE 100MG HS, AND T EMAZEPAM 15MG HS PRN.. HER HOME MEDICATIONS OF NORVASC, ECOTRIN, LIPITOR, COREG, PLAVIX, FOLIC ACID, MEMANTINE, ZOFRAN, AND PROTONIX WERE RESUMED. OTHERWISE, WE PLAN TO FOLLOW UP WITH AM LABS AND CONTINUE TO MONITOR. TIME SPENT ON CLINICAL ASSESSMENT, REVIEWING LABS AND IMAGING, DECISION MAKING, AND DOCUMENTATION GREATER THAN 75 MINUTES. - Past Medical History Past Medical History: Hypertension, Dyslipidemia, Arthritis, Kidney Stones Additional Medical History: THALASSEMIA B MINOR - Past Surgical History Surgical History: Cholecystectomy, Hysterectomy, Ortho Surgery, Other - Family History Family Medical History: [place], Coronary Artery Disease, Heart Failure, Sudden Cardiac , Hypertension - Social History Does patient currently use any type of tobacco product: No Have you used tobacco products in the last 12 months: No Type of Tobacco Use: None Does any household member use tobacco: No Alcohol Use: None Drug Use: None - Review of Systems Constitutional: Weakness. denies: Fever, Chills Eyes: No Symptoms Reported ENT: No Symptoms Reported Respiratory: No Symptoms Reported Cardiovascular: No Symptoms Reported Gastrointestinal: See HPI, Nausea, Vomiting Genitourinary: No Symptoms Reported Musculoskeletal: No Symptoms Reported Skin: No Symptoms Reported Neurological: Weakness, Confusion - Physical Exam Vital Signs: Vital Signs Temperature 97.6 F Temperature 99.4 F Pulse Rate [Radial] 66 Pulse Rate [Radial] 75 Respiratory Rate 18 Respiratory Rate 20 Blood Pressure [Right Arm] 130/60 Blood Pressure [Right Arm] 141/65 O2 Sat by Pulse Oximetry 94 O2 Sat by Pulse Oximetry 95 Oriented: Person, Place Eyes: Normal Ear: Normal Nose: Normal Throat: Normal Respiratory: Diminished Throughout Cardiovascular: Normal : Normal Auscultation: Bowel Sounds: Normal Palpation: Normal Tenderness: Suprapubic, Mild Skin: Normal Musculoskeletal: Normal Psychiatric: Normal Mood Description: Calm Affect: Normal Speech Pattern: Clear - Assessment/Plan (1) UTI (urinary tract infection) Qualifiers: Urinary tract infection type: site unspecified Hematuria presence: without hematuria Qualified Code(s): N39.0 - Urinary tract infection, site not specified Status: Acute Plan: ADMIT, FORTAZ 1G IV Q8H, MILK OF MAGNESIA 30MG HS, COLACE 100MG HS, AND TEMAZEPAM 15MG HS PRN. RESUME HOME MEDS (2) Anemia Qualifiers: Anemia type: iron deficiency Iron deficiency anemia type: unspecified iron deficiency Qualified Code(s): D50.9 - Iron deficiency anemia, unspecified Status: Acute (3) Generalized weakness Status: Acute (4) Altered mental status Qualifiers: Altered mental status type: transient alteration of awareness Qualified Code(s): R40.4 - Transient alteration of awareness Status: Acute (5) Hypertension Qualifiers: Hypertension type: primary hypertension Status: Chronic Plan: RESUME NORVASC, COREG (6) Hyperlipidemia Qualifiers: Hyperlipidemia type: mixed hyperlipidemia Status: Chronic (7) Dementia Qualifiers: Dementia type: unspecified type Dementia severity: unspecified severity Dementia behavioral or psychological symptom: without behavioral, psychotic, or mood disturbance or anxiety Qualified Code(s): F03.90 - Unspecified dementia, unspecified severity, without behavioral disturbance, psychotic disturbance, mood disturbance, and anxiety Status: Chronic Plan: CONTINUE MEMANTINE (8) GERD (gastroesophageal reflux disease) Qualifiers: Esophagitis presence: esophagitis presence not specified Qualified Code(s): K21.9 - Gastro-esophageal reflux disease without esophagitis Status: Chronic Plan: CONTINUE PROTONIX - Allergies Allergies/Adverse Reactions: Allergies Allergy/AdvReac Type Severity Reaction Status Date / Time No Known Drug Allergies Allergy Verified 05/19/23 09:20 - Medications Home Medications: Home Medications Medication Instructions Recorded Confirmed amlodipine 5 mg tablet 5 mg PO BID 03/31/23 05/19/23 atorvastatin 10 mg tablet 10 mg PO QPM 03/31/23 05/19/23 carvedilol 6.25 mg tablet 6.25 mg PO Q12H 03/31/23 05/19/23 clopidogrel 75 mg tablet 75 mg PO QDAY 03/31/23 05/19/23 aspirin 81 mg tablet,delayed 81 mg PO DAILY 05/19/23 05/19/23 release ciprofloxacin HCl 250 mg tablet 250 mg PO BID 05/19/23 05/19/23 folic acid 1 mg tablet 1 mg PO QDAY anemia 05/19/23 05/19/23 memantine 28 mg capsule 28 mg PO DAILY 05/19/23 05/19/23 sprinkle,extended release 24hr ondansetron 4 mg disintegrating 4 mg PO Q6H PRN nausea and vomiting 05/19/23 05/19/23 tablet pantoprazole 40 mg tablet,delayed 40 mg PO BID ulcer 05/19/23 05/19/23 release
[2023-05-20 11:48] VITALS: RESP 20
[2023-05-20] MEDS: COLACE CAP 100 MG PO SCH (20:19)
[2023-05-20] MEDS: LIPITOR TAB 10 MG PO SCH (20:19)
[2023-05-20] MEDS: RESTORIL CAP 15 MG PO PRN (20:19)
[2023-05-20] MEDS: MILK OF MAGNESIA PO SCH (20:19)
[2023-05-21 04:50] VITALS: O2SAT 94
[2023-05-21] MEDS: FORTAZ or TAZICEF VIAL INJ 1 G in NS 100 ML IV 100 ML IV SCH (05:09)
[2023-05-21 06:11] LABS: BASOPHILS % (AUTO) 0.7 % (0.2-1.0); EOSINOPHILS # (AUTO) 0.2 x10^3/uL (0.0-0.2); HEMATOCRIT 25.2 % (36.0-47.0); HEMOGLOBIN 8.4 g/dL (12.0-16.0); LYMPHOCYTES # (AUTO) 1.5 X10^3/uL (1.3-2.9); LYMPHOCYTES % (AUTO) 22.5 % (21.0-51.0); MEAN CORPUSCULAR HEMOGLOBIN 21.6 pg (27.0-34.0); MEAN CORPUSCULAR HGB CONC 33.2 g/dL (33.0-35.0); MEAN CORPUSCULAR VOLUME 65.2 fL (80.0-100.0); MEAN PLATELET VOLUME 9.5 fL (7.4-11.0); MONOCYTES # (AUTO) 0.7 x10^3/uL (0.3-0.8); MONOCYTES % (AUTO) 9.6 % (0.0-13.0); NEUTROPHILS # (AUTO) 4.3 x10^3/uL (2.2-4.8); NEUTROPHILS % (AUTO) 64.2 % (42.0-75.0); PLATELET COUNT 158 X10^3/uL (150.0-450.0); RED BLOOD COUNT 3.87 X10^6/uL (3.5-5.4); RED CELL DISTRIBUTION WIDTH 19.1 % (11.6-16.5); WHITE BLOOD COUNT 6.8 X10^3/uL (3.6-10.0)
[2023-05-21 06:19] LABS: ALANINE AMINOTRANSFERASE 26 Units/L (12-78); ALBUMIN 2.7 g/dL (3.4-5.0); ALKALINE PHOSPHATASE 116 Units/L (46-116); ASPARTATE AMINO TRANSFERASE 26 Units/L (15-37); BLOOD UREA NITROGEN 6 mg/dL (7-18); CALCIUM 8.3 mg/dL (8.5-10.1); CARBON DIOXIDE 30.1 mmol/L (21-32); CHLORIDE 107 mmol/L (98-107); COR CA(FOR HYPOALB) 9.3 mg/dL (8.5-10.1); CREATININE 0.82 mg/dL (0.55-1.02); GLUCOSE 104 mg/dL (65-99); MAGNESIUM 2.4 mg/dL (2.0-2.9); POTASSIUM 3.7 mmol/L (3.5-5.1); SODIUM 145 mmol/L (136-145); TOTAL PROTEIN 5.9 g/dL (6.4-8.2); eGFR NON BLACK RACES > 60 (>60)
[2023-05-21 06:53] LABS: HYPOCHROMASIA 2+; PLATELET MORPHOLOGY COMMENT NORMAL (NORMAL)
[2023-05-21 06:54] LABS: ANISOCYTOSIS SLIGHT; MICROCYTOSIS 1+; OVALOCYTES 1+; SCHISTOCYTES SLIGHT; TARGET CELLS SLIGHT
[2023-05-21] MEDS ORDERED: CONSULT PHARMACY - POTASSIUM & MAGNESIUM XX SCH ×2 (07:00→08:00)
[2023-05-21] MEDS ORDERED: K-DUR TAB 20 MEQ PO ONE (07:28)
[2023-05-21] MEDS: PLAVIX PO SCH (08:11)
[2023-05-21] MEDS: ASPIRIN EC 81 MG PO SCH (08:12)
[2023-05-21] MEDS: FOLIC ACID TAB 1 MG PO SCH (08:12)
[2023-05-21] MEDS: PROTONIX TAB 40 MG PO SCH (08:12)
[2023-05-21] MEDS: NORVASC TAB 5 MG PO SCH (08:12)
[2023-05-21] MEDS: COREG TAB 6.25 MG PO SCH (08:12)
[2023-05-21] MEDS: MEMANTINE 28 MG PO SCH (08:13)
[2023-05-21] MEDS ORDERED: K-DUR TAB 20 MEQ PO SCH (09:00)
[2023-05-21 09:24] VITALS: BP 152/68; PULSE 66; TEMP 98
[2023-05-21] MEDS ORDERED: COLACE CAP 100 MG PO SCH (21:00)
== END 2023-05-21 09:40 | disposition home health service (06) ==
LOC: MED/SURG 08:33 → ER 08:33 → MED/SURG 13:27
PROVIDERS: ADMIT Internal Medicine; ATTEND Internal Medicine
DX: F03.90 Unspecified dementia, unspecified severity, without behavioral disturbance, psychotic disturbance, mood disturbance, and anxiety; R53.1 Weakness; K21.9 Gastro-esophageal reflux disease without esophagitis; E78.2 Mixed hyperlipidemia; I10 Essential (primary) hypertension; Z20.822 Contact with and (suspected) exposure to COVID-19; D50.8 Other iron deficiency anemias; R11.2 Nausea with vomiting, unspecified; R40.4 Transient alteration of awareness; Z86.73 Personal history of transient ischemic attack (TIA), and cerebral infarction without residual deficits; N39.0 Urinary tract infection, site not specified; R74.01 Elevation of levels of liver transaminase levels; Z73.89 Other problems related to life management difficulty